=== PATIENT | male | born 1945 | race Caucasian/White ===

== ENCOUNTER 2021-09-21 00:10 | Day surgery (SDC) | payer OTHER, SELFPAY ==
[2021-08-12 12:05] VITALS: BMI 28.5
--- NOTE | 2021-09-10 13:11 | PC.NURSE ---
Verified new date and time of procedure with patient.
[2021-09-21 11:16] VITALS: BP 154/78; PULSE 76; RESP 18; TEMP 36.6; O2SAT 100
[2021-09-21] MEDS: LACTATED RINGERS 1,000 ML 150 ML IV CONT (11:24)
--- NOTE | 2021-09-21 12:06 | WPDANESEPPF ---
Anes - Initial Pre Proc Eval Procedure: Operation Date: 09/21/21 12:30 Proposed Procedures p Screening Colonoscopy - Garrick Tinoco MD Date/Time: 09/21/21 12:06 Surgeon: Garrick Tinoco MD Pre Op Diagnosis: hx of colon polyps Patient Data Age: 76 Gender: M Height: 1.83 m Weight: 93.8 kg Last Vital Signs Temp 36.6 C 09/21/21 11:16 Pulse 76 09/21/21 11:16 Resp 18 09/21/21 11:16 BP 154/78 H 09/21/21 11:16 Pulse Ox 100 09/21/21 11:16 Allergies Allergy/AdvReac Type Severity Reaction Status Date / Time No Known Allergies Allergy Verified 09/21/21 11:15 Home Medications Medication Instructions Recorded Confirmed Type levetiracetam 500 mg tablet See Rx Instructions .ROUTE 02/04/21 08/12/21 Rx .COMPLEX #180 tablet omeprazole 40 mg capsule,delayed See Rx Instructions .ROUTE 03/24/21 08/12/21 Rx release .COMPLEX #90 cap losartan 50 mg-hydrochlorothiazide 1 tablet PO DAILY #90 tablet 06/29/21 08/12/21 Rx 12.5 mg tablet diclofenac 75 mg-misoprostol 200 See Rx Instructions .ROUTE 06/30/21 08/12/21 Rx mcg tablet,immediate,delayed .COMPLEX #180 tablet release sertraline 50 mg tablet 50 mg PO DAILY #90 tablet 06/30/21 08/12/21 Rx Patient hx anesthesia problems: none Family hx anesthesia problems: none Results Review: All pre-operative results and documents have been reviewed as part of the pre-operative evaluation. [facility] Past Medical History Medical History (Updated 06/29/21 @ 13:27 by Jose Bowen MD) H/O tonic-clonic seizures Family History Family History Father Family history of cardiovascular disease, Onset Age: 70 Mother Carcinoma of colon, Onset Age: 56 Other Family history of malignant neoplasm Social History Social History Smoking status: Never smoker Alcohol intake: never Substance use: never Substance use type: does not use Living arrangements: with family Spiritual care concerns: No Anes - Eval Final PreProcedure Day of Procedure 09/21/21 12:06 Patient weight: overweight Heart: regular rate and rhythm Lungs: clear to auscultation Airway: Mallampati scale class II Neurological: alert and oriented Last oral intake: >/= 8 hours ASA classification: III Emergent: no Anesthetic plan: proceed Anesthesia type and monitoring: general GIVS and standard monitoring Results Review: All pre-operative results and documents have been reviewed as part of the pre-operative evaluation. Informed Consent: The patient's anesthetic plan and its attendant risks and benefits were discussed with the patient/family/POA. Questions were solicited and answers provided to the satisfaction of the patient/family/POA.
--- NOTE | 2021-09-21 12:19 | PM.HPGS ---
History of Present Illness History of Present Illness Consent: Risks, benefits, and alternatives have been discussed and questions answered. Patient agrees to proceed with procedure. Chief complaint: hx of colon polyps Narrative: Perico Winston Jr. is a 76 year old male here for screening colonoscopy, last one more than 10 years ago. Review of Systems Constitutional: Constitutional: Denies headache(s) and Denies weakness Eyes: Eyes: Denies blurry vision ENT: Reports Normal hearing present, Denies headache(s) and Denies neck pain Cardiovascular: Cardiovascular: Denies chest pain and Denies dyspnea Respiratory: Respiratory: Denies dyspnea Gastrointestinal: Gastrointestinal: Reports no additional gastrointestinal complaints Genitourinary: Genitourinary: Denies dysuria Musculoskeletal: Musculoskeletal: Denies neck pain Integumentary/Breasts: Skin/Breast: Denies dry skin Neurologic: Reports Normal hearing present, Denies headache(s) and Denies weakness Psychiatric: Psychiatric: Denies anxiety Endocrine: Endocrine: Denies change in body appearance Hematologic/Lymphatic: Hematologic/Lymphatic: Denies easy bleeding Allergic/Immunologic: Allergic/Immunologic: Denies urticaria PMFSH Past Medical History Medical History (Updated 06/29/21 @ 13:27 by Jose Bowen MD) H/O tonic-clonic seizures Family History Family History Father Family history of cardiovascular disease, Onset Age: 70 Mother Carcinoma of colon, Onset Age: 56 Other Family history of malignant neoplasm Social History Social History Smoking status: Never smoker Alcohol intake: never Substance use: never Substance use type: does not use Living arrangements: with family Spiritual care concerns: No Meds Home Medications and Allergies Home Medications Medication Instructions Recorded Confirmed Type levetiracetam 500 mg tablet See Rx Instructions .ROUTE 02/04/21 08/12/21 Rx .COMPLEX #180 tablet omeprazole 40 mg capsule,delayed See Rx Instructions .ROUTE 03/24/21 08/12/21 Rx release .COMPLEX #90 cap losartan 50 mg-hydrochlorothiazide 1 tablet PO DAILY #90 tablet 06/29/21 08/12/21 Rx 12.5 mg tablet diclofenac 75 mg-misoprostol 200 See Rx Instructions .ROUTE 06/30/21 08/12/21 Rx mcg tablet,immediate,delayed .COMPLEX #180 tablet release sertraline 50 mg tablet 50 mg PO DAILY #90 tablet 06/30/21 08/12/21 Rx Allergies Allergy/AdvReac Type Severity Reaction Status Date / Time No Known Allergies Allergy Verified 09/21/21 11:15 Vital Signs Vital Signs - 24 hr 09/21/21 11:16 Temperature 97.9 F Pulse Rate 76 Respiratory Rate 18 Blood Pressure 154/78 H Pulse Oximetry 100 Exam Const: General: comfortable and no acute distress HENMT: General nose exam: Normal nares present Eyes: General: appearance normal, both eyes and all related structures Neck: Neck: no JVD Resp: Auscultation: clear to auscultation bilaterally Cardio: Rate: regular rate Rhythm: regular rhythm GI: Inspection: non-distended GI Palp: Yes Soft to palpation Skin: General skin exam: normal color Neuro: General: gait normal Speech: normal speech Extrem: General: normal to inspection Psych: Mental Status: mental status grossly normal Assessment and Plan Assessment and plan (1) Colon cancer screening: Code(s): Z12.11 - Encounter for screening for malignant neoplasm of colon Status: Acute Assessment and Plan: colonoscopy
[2021-09-21 12:34] VITALS: BP 107/66; PULSE 61; RESP 18; O2SAT 99
[2021-09-21 12:44] VITALS: BP 107/71; PULSE 64; RESP 21; O2SAT 98
[2021-09-21 12:54] VITALS: BP 122/77; PULSE 59; RESP 14; O2SAT 100
== END 2021-09-21 13:06 | disposition home or self-care (01) ==
PROVIDERS: PCP Emergency Medicine; Visit Provider Internal Medicine Gastroenterology
PROC: 0DJD8ZZ Inspection of Lower Intestinal Tract, Via Natural or Artificial Opening Endoscopic (ICD-10-PCS; CPT 45378; principal; 2021-09-21 12:30)
DX: Z12.11 Encounter for screening for malignant neoplasm of colon (principal); D12.5 Benign neoplasm of sigmoid colon; K64.8 Other hemorrhoids; G40.89 Other seizures
CPT/HCPCS: 45385; 88305; J2704; J7120

== ENCOUNTER 2021-12-23 10:40 | Emergency (ER) | payer OTHER, SELFPAY ==
[2021-12-23 10:51] VITALS: BP 160/79; PULSE 64; RESP 18; TEMP 36.6; O2SAT 99
--- NOTE | 2021-12-23 11:03 | PC.NURSE ---
patient UTD on tetnus
--- NOTE | 2021-12-23 11:15 | PC.NURSE ---
patient states that incident occurred last night around 1999. active bleeding noted at this time. denies blood thinners.wound cleansed with NS and gauze for pressure
[2021-12-23] MEDS: LIDOCAINE HCL 1% LOCAL INJ 20 ML VIAL (12:15)
--- NOTE | 2021-12-23 12:17 | ED.WOUNDLAC ---
HPI - Wound/Laceration General Chief Complaint: Wound/Laceration Stated Complaint: left thumb lac Time Seen by Provider: 12/23/21 11:57 History of Present Illness HPI narrative: 76-year-old male presents to the emergency room for evaluation of laceration to his left thumb that occurred early this morning when he was attempting to open up a can. Patient states his tetanus is up-to-date Related Data Allergies Allergy/AdvReac Type Severity Reaction Status Date / Time No Known Allergies Allergy Verified 12/23/21 11:03 Review of Systems Review of Systems: CONSTITUTIONAL: Denies fever, chills, or sweats. EYES: Denies visual changes, redness, or discharge. ENT: Denies rhinorrhea, congestion, sore throat, or otalgia. CARDIOVASCULAR: Denies chest pain, palpitations, or edema. RESPIRATORY: Denies cough or dyspnea. GASTROINTESTINAL: Denies abdominal pain, nausea, vomiting, or diarrhea. GENITOURINARY: Denies dysuria or hematuria. SKIN: Laceration to left thumb MUSCULOSKELETAL: Denies back pain, joint pain, or myalgia. NEUROLOGIC: Denies headache, numbness, dizziness, or weakness. PSYCHIATRIC: Denies anxiety or depression. [facility] Past Medical History Medical History H/O tonic-clonic seizures Family History Family History Father Family history of cardiovascular disease, Onset Age: 70 Mother Carcinoma of colon, Onset Age: 56 Other Family history of malignant neoplasm Social History Social History Smoking status: Never smoker Alcohol intake: never Substance use: never Substance use type: does not use Spiritual care concerns: No Exam Narrative: GENERAL: Well-appearing, well-nourished, and in no acute distress. HEAD: Normocephalic, atraumatic. EYES: PERRLA and EOMI. CHEST: Clear to auscultation. No respiratory distress. No wheezes rales or rhonchi HEART: Regular rate and rhythm. No murmur heard. Normal peripheral pulses. ABDOMEN: Soft, nontender, nondistended, normal active bowel sounds. EXTREMITIES: Normal range of motion. No edema. SKIN: 5 cm linear laceration lateral surface of the left thumb. No joint laxity to the IP joint. Neurovascular is intact distally NEURO: No focal deficits. Alert and oriented x3. PSYCH: Normal mood and affect. Course Vital Signs Vital signs: Vital Signs Temperature 36.6 C 12/23/21 10:51 Pulse Rate 64 12/23/21 10:51 Respiratory Rate 18 12/23/21 10:51 Blood Pressure 160/79 H 12/23/21 10:51 Pulse Oximetry 99 12/23/21 10:51 Temperature 36.6 C 12/23/21 10:51 Pulse Rate 64 12/23/21 10:51 Respiratory Rate 18 12/23/21 10:51 Blood Pressure 160/79 H 12/23/21 10:51 Pulse Oximetry 99 12/23/21 10:51 Procedures Laceration Laceration 1: Date: 12/23/21 Time: 12:18 Site: other (left thumb) Side (If applicable): left Size (cm): 2.5 Description: linear Local Anesthetic: lidocaine 1% Amount of anesthesia used (mL): 3 Pre-repair: irrigated ====== Skin Level ====== Skin layer closed with: nylon Size (cm): 4-0 Number of sutures: 5 Technique: simple, interrupted ====== Subcutaneous Layer ====== ====== Muscle Layer ====== ====== Tendon Layer ====== Discharge Plan Discharge Clinical Impression: Laceration of left thumb Qualifiers: Encounter type: initial encounter Damage to nail status: without damage Foreign body presence: without foreign body Qualified Code(s): S61.012A - Laceration without foreign body of left thumb without damage to nail, initial encounter Patient Disposition: Home, Self-Care Condition: Stable Instructions: Antibiotic Form Prescriptions: New cephalexin 500 mg capsule 500 mg PO Q12H Qty: 14 RF: 0 No Action losartan-
--- NOTE | 2021-12-23 12:29 | PC.NURSE ---
bandaid placed over 5 sutures. thumb splint placed on left thumb and secured with coban
== END 2021-12-23 12:33 | disposition home or self-care (01) ==
PROVIDERS: Emergency Provider Nurse Practitioner Family; PCP Emergency Medicine
DX: S61.012A Laceration without foreign body of left thumb without damage to nail, initial encounter (principal); W26.8XXA Contact with other sharp object(s), not elsewhere classified, initial encounter
CPT/HCPCS: 12001; 99283

== ENCOUNTER 2022-09-07 09:38 | Outpatient (CLI) | payer OTHER, SELFPAY ==
--- NOTE | ~2022-09-07 | NM_ITS ---
EXAMINATION: NM bone scan whole body DATE: 09/07/2022 13:29 INDICATION: Malignant neoplasm of prostate. TECHNIQUE: 22.2 mCi Tc-99m HDP was administered intravenously. Delayed whole-body scintigrams were o btained. COMPARISON: CT chest, abdomen, and pelvis 01/27/2015 FINDINGS: There is joint-centered increased activity at the acromioclavicular joints, sternoclavicula r joints, elbows, hands, wrists, knees, and feet, likely osteoarthritis. There is focal increased act ivity in left eighth rib. IMPRESSION: 1. Focal increased activity in left eighth rib, most likely an age-indeterminate fracture. Metastatic disease cannot be excluded. Reviewed, dictated and finalized at location A. CAL ACCOUNTANT IMPRESSION: 1. Focal increased activity in left eighth rib, most likely an age-indeterminat e fracture. Metastatic disease cannot be excluded.
== END 2022-09-07 09:39 | disposition home or self-care (01) ==
PROVIDERS: PCP Emergency Medicine; Visit Provider Radiology Radiation Oncology
DX: C61 Malignant neoplasm of prostate (principal)
CPT/HCPCS: 78306; A9503

== ENCOUNTER 2023-05-28 18:47 | Emergency (ER) | payer OTHER, SELFPAY ==
--- NOTE | ~2023-05-28 | XR_ITS ---
EXAM: XR hand RT min 3V DATE: 05/28/2023 19:41 HISTORY: lateral redness/swelling, slammed in car door . COMPARISON: None available. FINDINGS: Decreased mineralization. No fracture or dislocation. No lytic or blastic lesion. Moderate degenerative changes. No erosion or periosteal change. Soft tissues within normal limits. IMPRESSION: No acute osseous finding in the right hand. Reviewed, dictated and finalized at location K.
[2023-05-28 19:00] VITALS: BP 102/56; PULSE 76; RESP 14; TEMP 36.7; O2SAT 98
--- NOTE | 2023-05-28 19:30 | ED.EXTPRO ---
HPI - Extremity Problem General Chief complaint: Extremity Problem,Nontraumatic Stated complaint: R HAND INFECTION S/P INJURY Time Seen by Provider: 05/28/23 19:17 History of Present Illness HPI Narrative: Patient is a 77-year-old male presenting with right hand redness. Patient states that he accidentally slammed his right hand in a door several days ago. States that he had some minor pain after that but then he noticed today that there is redness along the lateral aspect of his hand. States that he has some scabs on his hand from his goldendoodle. Denies significant pain. Denies fevers. Denies further complaints. Related Data Home Medications Medication Instructions Recorded Confirmed tamsulosin 0.4 mg capsule 0.4 mg PO DAILY 05/03/23 05/31/23 relugolix 120 mg tablet (Orgovyx) 120 mg PO 1700 06/01/23 06/01/23 Allergies Allergy/AdvReac Type Severity Reaction Status Date / Time No Known Allergies Allergy Verified 05/31/23 08:51 Review of Systems Review of Systems: All systems reviewed & are unremarkable except as noted in HPI and below PMFSH Past Medical History Medical History (Updated 06/01/23 @ 14:15 by Gurjit Kelsey APRN) CKD (chronic kidney disease), stage III Depression Gastroesophageal reflux disease without esophagitis HTN (hypertension) Mixed hyperlipidemia Prostate cancer Seizures Spondylosis without myelopathy or radiculopathy, cervical region Surgical History Surgical History (Updated 05/31/23 @ 17:52 by Parisa Weller APRN) History of prostate biopsy Family History Family History Father Family history of cardiovascular disease, Onset Age: 70 Mother Carcinoma of colon, Onset Age: 56 Other Family history of malignant neoplasm Social History Social History (Updated 05/31/23 @ 16:00 by Parisa Weller APRN) Social History: Currently lives at home with his . Surrogate decision maker: Lo Winston Full Code. Retired. Smoking status: Never smoker Alcohol intake: never Substance use: never Substance use type: does not use Lack of Transportation: No Lack of Food: Never True Current Housing: I Do Not Have Housing Concerned About Future Housing: No Difficulty Paying Gas/Electric Bills: No Difficulty Paying for Meds: No Currently Unemployed: No Education: Trade/Vocational Certificate Difficulty w/ Childcare or Family Care: No Living arrangements: with family Spiritual care concerns: No Exam Narrative: GENERAL: Well-appearing, well-nourished, and in no acute distress. HEAD: Normocephalic, atraumatic. EYES: PERRLA and EOMI. ENT: Grossly unremarkable NECK: Supple. CHEST: No respiratory distress. HEART: Regular rate and rhythm. Normal peripheral pulses. ABDOMEN: Nondistended EXTREMITIES: Right hand with multiple scabs that appear to be healing, there is a scab proximal to the fifth MCPJ with underlying erythema, warm to the touch, no spreading erythema, no obvious drainage, no swelling of the fingers, ROM intact, nontender SKIN: Warm, dry, no rash. NEURO: No focal deficits. Alert and oriented x3. PSYCH: Normal mood and affect. Course Vital Signs Vital signs: Vital Signs Temperature 98.0 F 05/28/23 19:00 Pulse Rate 76 05/28/23 19:00 Respiratory Rate 14 05/28/23 19:00 Blood Pressure 102/56 L 05/28/23 19:00 Pulse Oximetry 98 05/28/23 19:00 Oxygen Delivery Room Air 05/28/23 19:00 Temperature 98.0 F 05/28/23 19:00 Pulse Rate 76 05/28/23 19:00 Respiratory Rate 14 05/28/23 19:00 Blood Pressure 102/56 L 05/28/23 19:00 Pulse Oximetry 98 05/28/23 19:00 Oxygen Delivery Room Air 05/28/23 19:00 MDM - Extremity (Nontraumatic) MDM Narrative Medical decision making narrative: Patient is a 77-year-old male presenting with right hand redness and warmth. Vitals are stable. Exam remarkable
[2023-05-28] MEDS: AMOXICILLIN/CLAVULANATE K 875-125 MG TAB 1 TABLET PO (19:46)
== END 2023-05-28 20:58 | disposition home or self-care (01) ==
PROVIDERS: Emergency Provider Emergency Medicine; PCP Emergency Medicine
DX: L03.113 Cellulitis of right upper limb (principal)
CPT/HCPCS: 73130; 99283; A9270

== ENCOUNTER 2023-05-31 08:47 | Inpatient (IN) | payer OTHER, SELFPAY ==
[2023-05-31] VITALS (8 sets, daily range): BP systolic 127–152; BP diastolic 64–89; PULSE 76–96; RESP 16–18; TEMP 36.4–37.3; O2SAT 98–100; BMI 29.9
--- NOTE | 2023-05-31 10:03 | PC.NURSE ---
Pt presents with edema, ecchymosis to right 4th 7 5th knuckle extending to top of hand. States has been taking antibiotic & aaply warm compresses with no result of improvement.
--- NOTE | 2023-05-31 10:11 | ED.GENADULT ---
HPI - General Adult General Chief complaint: Extremity Problem,Nontraumatic <Kam Sinha PA-C - Last Filed: 05/31/23 14:57> Stated complaint: hand swelling <NATACHA Dickens Last Filed: 05/31/23 14:57> Time Seen by Provider: 05/31/23 09:06 <NATACHA Dickens Last Filed: 05/31/23 14:57> Source: patient <NATACHA Dickens Last Filed: 05/31/23 14:57> Mode of arrival: ambulatory <NATACHA Dickens Last Filed: 05/31/23 14:57> Limitations: no limitations <NATACHA Dickens Last Filed: 05/31/23 14:57> History of Present Illness HPI narrative: This is a 77-year-old male with PMH of diabetes who presents to the ED with chief complaint of right hand cellulitis that is worsened since last being seen 3 days ago. Patient reports he had an injury over 5 days ago in which she slammed his hand in the car door. Reports he was seen here after that and given Augmentin. Reports the redness, swelling significantly worsened last night and today. Denies fevers, chills, nausea, vomiting, streaking of the arms. <NATACHA Dickens Last Filed: 05/31/23 14:57> Related Data Home medications: Home Medications Medication Instructions Recorded Confirmed tamsulosin 0.4 mg capsule 0.4 mg PO DAILY 05/03/23 05/31/23 relugolix 120 mg tablet (Orgovyx) 120 mg PO 1700 06/01/23 06/01/23 <NATACHA Dickens Last Filed: 05/31/23 14:57> Allergies/adverse reactions: Allergies Allergy/AdvReac Type Severity Reaction Status Date / Time No Known Allergies Allergy Verified 06/09/23 09:47 <NATACHA Dickens Last Filed: 05/31/23 14:57> Review of Systems Review of Systems: All systems as dictated in HPI <NATACHA Dickens Last Filed: 05/31/23 14:57> [facility] Past Medical History Medical History: Medical History Abscess CKD (chronic kidney disease), stage III Depression Gastroesophageal reflux disease without esophagitis HTN (hypertension) Mixed hyperlipidemia Prostate cancer Seizures Spondylosis without myelopathy or radiculopathy, cervical region <Kam Sinha PA-C - Last Filed: 05/31/23 14:57> Surgical History Surgical History: Surgical History History of prostate biopsy <Kam Sinha PA-C - Last Filed: 05/31/23 14:57> Family History Family History: Family History Father Family history of cardiovascular disease, Onset Age: 70 Mother Carcinoma of colon, Onset Age: 56 Other Family history of malignant neoplasm <Kam Sinha PA-C - Last Filed: 05/31/23 14:57> Social History Social History: Social History (Updated 06/09/23 @ 10:06 by Tiki Bennett MA) Social History: Currently lives at home with his . Surrogate decision maker: Lo Winston Full Code. Retired. Smoking status: Never smoker Alcohol intake: never Substance use: never Substance use type: does not use Lack of Transportation: No Lack of Food: Never True Current Housing: I Have Housing Concerned About Future Housing: No Difficulty Paying Gas/Electric Bills: No Difficulty Paying for Meds: No Currently Unemployed: No Education: High School Diploma/GED Difficulty w/ Childcare or Family Care: No Living arrangements: with family Spiritual care concerns: No <Kam Sinha PA-C - Last Filed: 05/31/23 14:57> Exam Narrative: GENERAL: Well-appearing, well-nourished, and in no acute distress. HEAD: Normocephalic, atraumatic. EYES: PERRLA and EOMI. ENT: Nares clear, no rhinorrhea or epistaxis. Mucous membranes moist. Oropharynx without tonsillar hypertrophy exudate or other lesions. NECK: Supple. No adenopathy or masses. CHEST: No respiratory distress. Clear to auscultation. No wheezes rales or rhonchi
--- NOTE | 2023-05-31 10:16 | PC.NURSE ---
Blood specimens including blood cultures sent to lab
[2023-05-31 10:19] LABS: Basophils Percent Auto 0.3 % (0.2-1.2); Eosinophils Absolute Auto 0.1 K/mm3 (0-0.3); Eosinophils Percent Auto 1.6 % (0-4.4); Hematocrit 35.4 % (42.0-52.0); Hemoglobin 11.8 g/dL (14.0-18.0); Immature Granulocyte Absolute 0.02 K/mm3 (0.00-0.031); Immature Granulocyte Percent A 0.3 % (0-0.5); Lymphocytes Percent Auto 7.5 % (18.3-44.2); Mean Corpuscular HGB Conc 33.3 g/dl (32-36); Mean Corpuscular Hemoglobin 31.3 pg (26-34); Mean Corpuscular Volume 93.9 fl (80-100); Mean Platelet Volume 10.3 fl (7.4-10.4); Monocytes Absolute Auto 0.5 K/mm3 (0.1-0.6); Neutrophils Absolute Auto 5.6 K/mm3 (1.3-6.7); Neutrophils Percent Auto 83.3 % (45.5-73.1); Platelet Count Result 158 k/mm3 (150-375); Red Blood Count 3.77 M/mm3 (4.6-6.20); Red Cell Distribution Width 13.5 % (11.5-14.5); White Blood Count 6.7 K/mm3 (4.5-10.0)
[2023-05-31] MEDS: ceFAZolin 1 GM/NS 50 ML 1 GM/50 ML BAG IVPB ×2 (10:25→23:30)
[2023-05-31 10:28] LABS: Lactic Acid Reflex 1.1 mmol/L (0.7-2.0)
[2023-05-31 10:30] LABS: Alanine Aminotransferase 30 U/L (6-50); Albumin Level 4.4 g/dL (3.5-5.1); Alkaline Phosphatase 103 U/L (38-126); Anion Gap 12 mmol/L (8-16); Aspartate Amino Transferase 44 U/L (17-59); Bilirubin,Total 0.8 mg/dL (0.2-1.3); Blood Urea Nitrogen 25 mg/dL (9-20); CRP 4.3 mg/dL (<1.0); Calcium 9.4 mg/dL (8.4-10.2); Carbon Dioxide 23 mmol/L (22-30); Chloride 99 mmol/L (98-107); Estimated CRCL calculation 48 ml/min; Estimated Glomerular Filt Rate 54; Glucose 154 mg/dL (65-110); Potassium 4.7 mmol/L (3.4-5.0); Sodium 134 mmol/L (137-145)
--- NOTE | 2023-05-31 12:57 | ADMGEN ---
This patient, Perico Winston Jr., was admitted to [facility] Surg Room 331-01 at 1225. Patient/family oriented to hospital policies and general routines including ID bracelet, bed and alarms, visiting hours, pain management, procedures, bathroom and other care routines, personal items, smoking policy, room service/diet, and visiting hours. Information on how to activate the Rapid Response Team has been discussed. Patient/Family are encouraged to report perceived risks to care and to ask questions if they do not understand what they are told or what they should do.
[2023-05-31] MEDS: LOPERAMIDE HCL 2 MG CAPSULE 4 MG PO (14:12)
[2023-05-31] MEDS: SODIUM CHLORIDE 0.9% IV 1,000 ML 125 ML IV CONT ×2 (14:12→23:30)
--- NOTE | 2023-05-31 14:48 | PM.IMHP ---
H&P: HPI History of Present Illness Date/Time: 05/31/23 14:48 Chief Complaint: Hand Pain Narrative: 77-year-old male presents here with cellulitis to the right hand following trauma with past medical history of diabetes and seizures. Patient presents here with swelling, tenderness, and fluctuant area to the right medial hand midway between 5th finger and wrist. Patient sustained injury to his hand 5 days ago via slamming hand in the car door. He was seen on 05/28/2023 for this injury. Imaging was negative for fracture. He was discharged with Augmentin. Swelling and redness initially decreased after antibiotic was started, however area became increasingly swollen and erythematous yesterday. Presented back today for re-evaluation. Patient is unsure when last Tdap was administered. Review of Systems Review of Systems: He currently denies fever, chills, nausea, vomiting. Endorses intermittent diarrhea secondary to orgovyx use. All systems reviewed & are unremarkable except as noted in HPI and below PMFSH Past Medical History Medical History (Updated 05/31/23 @ 17:51 by Parisa Weller APRN) CKD (chronic kidney disease), stage III Depression Gastroesophageal reflux disease without esophagitis HTN (hypertension) Mixed hyperlipidemia Prostate cancer Seizures Spondylosis without myelopathy or radiculopathy, cervical region Surgical History Surgical History (Updated 05/31/23 @ 17:52 by Parisa Weller APRN) History of prostate biopsy Family History Family History Father Family history of cardiovascular disease, Onset Age: 70 Mother Carcinoma of colon, Onset Age: 56 Other Family history of malignant neoplasm Social History Social History (Updated 05/31/23 @ 16:00 by Parisa Weller APRN) Social History: Currently lives at home with his . Surrogate decision maker: Lo Winston Full Code. Retired. Smoking status: Never smoker Alcohol intake: never Substance use: never Substance use type: does not use Lack of Transportation: No Lack of Food: Never True Current Housing: I Do Not Have Housing Concerned About Future Housing: No Difficulty Paying Gas/Electric Bills: No Difficulty Paying for Meds: No Currently Unemployed: No Education: Trade/Vocational Certificate Difficulty w/ Childcare or Family Care: No Living arrangements: with family Spiritual care concerns: No Meds Home Medications and Allergies Home Medications Medication Instructions Recorded Confirmed Type diclofenac sodium 75 mg See Rx Instructions .Route 06/14/22 05/31/23 Rx tablet,delayed release .COMPLEX #180 tabs omeprazole 40 mg capsule,delayed See Rx Instructions .Route 08/18/22 05/31/23 Rx release .COMPLEX #90 caps levetiracetam 500 mg tablet See Rx Instructions .Route 02/17/23 05/31/23 Rx .COMPLEX #180 tabs losartan 50 mg-hydrochlorothiazide See Rx Instructions .Route 04/11/23 05/31/23 Rx 12.5 mg tablet .COMPLEX #90 tabs misoprostol 200 mcg tablet See Rx Instructions .Route 04/11/23 05/31/23 Rx .COMPLEX #180 tabs tamsulosin 0.4 mg capsule 0.4 mg PO DAILY 05/03/23 05/31/23 History sertraline 50 mg tablet See Rx Instructions .Route 05/11/23 05/31/23 Rx .COMPLEX #90 tabs amoxicillin 875 mg-potassium 1 tablet PO Q12H #20 tabs 05/28/23 05/31/23 Rx clavulanate 125 mg tablet Allergies Allergy/AdvReac Type Severity Reaction Status Date / Time No Known Allergies Allergy Verified 05/31/23 08:51 Vital Signs Vital Signs - 24 hr 05/31/23 08:49 05/31/23 10:01 05/31/23 10:31 Temperature 98.1 F 97.6 F Pulse Rate 95 88 86 Respiratory Rate 16 18 18 Blood Pressure 152/84 H 131/89 127/70 Pulse Oximetry 100 99 100 Oxygen Delivery Room Air 05/31/23 11:01 05/31/23 12:17 05/31/23 12:54 Temperature 98.0 F 98.6 F Pulse Rate 88 84 83 Respiratory Rate 18 18 1
[2023-05-31] MEDS: VANCOMYCIN 1,250 MG/NS 250 ML 1,250 MG/250 ML BAG 166.67 MG IVPB ×2 (17:42→17:43)
[2023-05-31] MEDS: levETIRAcetam 500 MG TABLET PO (20:19)
[2023-05-31] MEDS: MORPHINE SULFATE (*CRX) 2 MG/ML INJ IV PUSH (20:20)
[2023-05-31 20:54] LABS: Glucose Point of Care 97 mg/dl (65-105)
[2023-05-31] MEDS: TETANUS,DIPHTHERIA,AC PERTUSSIS ADULT (0.5 ML) BOOSTRIX IM (23:30)
[2023-06-01] MEDS: SODIUM CHLORIDE 0.9% IV 1,000 ML 125 ML IV CONT (05:35)
[2023-06-01] MEDS: ceFAZolin 1 GM/NS 50 ML 1 GM/50 ML BAG IVPB ×3 (05:38→20:10)
[2023-06-01] MEDS: MORPHINE SULFATE (*CRX) 2 MG/ML INJ IV PUSH ×2 (05:41→12:39)
[2023-06-01 06:00] VITALS: BP 156/73; PULSE 62; RESP 18; TEMP 37.2; O2SAT 98
[2023-06-01 06:54] LABS: Hematocrit 29.2 % (42.0-52.0); Hemoglobin 9.6 g/dL (14.0-18.0); Mean Corpuscular HGB Conc 32.9 g/dl (32-36); Mean Corpuscular Hemoglobin 31.2 pg (26-34); Mean Corpuscular Volume 94.8 fl (80-100); Red Blood Count 3.08 M/mm3 (4.6-6.20); White Blood Count 4.3 K/mm3 (4.5-10.0)
[2023-06-01 06:55] LABS: Basophils Percent Auto 0.5 % (0.2-1.2); Eosinophils Absolute Auto 0.1 K/mm3 (0-0.3); Eosinophils Percent Auto 1.9 % (0-4.4); Immature Granulocyte Absolute 0.01 K/mm3 (0.00-0.031); Immature Granulocyte Percent A 0.2 % (0-0.5); Lymphocytes Absolute Auto 0.47 K/mm3 (0.9-3.2); Lymphocytes Percent Auto 11.1 % (18.3-44.2); Mean Platelet Volume 9.8 fl (7.4-10.4); Monocytes Absolute Auto 0.4 K/mm3 (0.1-0.6); Monocytes Percent Auto 9.6 % (2.6-8.5); Neutrophils Absolute Auto 3.3 K/mm3 (1.3-6.7); Neutrophils Percent Auto 76.7 % (45.5-73.1); Platelet Count Result 117 k/mm3 (150-375); Red Cell Distribution Width 13.5 % (11.5-14.5)
[2023-06-01 07:14] LABS: Alanine Aminotransferase 26 U/L (6-50); Albumin Level 3.7 g/dL (3.5-5.1); Alkaline Phosphatase 86 U/L (38-126); Anion Gap 6 mmol/L (8-16); Aspartate Amino Transferase 38 U/L (17-59); Bilirubin,Total 0.6 mg/dL (0.2-1.3); Blood Urea Nitrogen 17 mg/dL (9-20); Calcium 8.8 mg/dL (8.4-10.2); Carbon Dioxide 24 mmol/L (22-30); Chloride 105 mmol/L (98-107); Estimated CRCL calculation 56 ml/min; Estimated Glomerular Filt Rate > 60; Glucose 103 mg/dL (65-110); Sodium 135 mmol/L (137-145)
[2023-06-01 07:35] LABS: Hemoglobin A1C 5.1 % (<5.7)
[2023-06-01] MEDS: HYDROcodone/acetaminophen (*CRX) 5-325 MG TABLET 1 TAB PO ×3 (08:28→19:15)
[2023-06-01] MEDS: levETIRAcetam 500 MG TABLET PO ×2 (08:28→20:09)
[2023-06-01] MEDS: TAMSULOSIN HCL 0.4 MG CAPSULE PO (08:29)
[2023-06-01] MEDS: miSOPROStol 200 MCG TABLET PO ×2 (08:29→20:10)
--- NOTE | 2023-06-01 09:56 | PM.IMPN ---
Progress Note: A&P Assessment and Plan (1) Cellulitis of hand, right: Code(s): L03.113 - Cellulitis of right upper limb Status: Acute (2) Abscess: Code(s): L02.91 - Cutaneous abscess, unspecified Status: Acute Assessment and Plan: Right hand overlying 4th and 5th metacarpals (3) H/O tonic-clonic seizures: Code(s): Z86.69 - Personal history of other diseases of the nervous system and sense organs Status: Acute (4) Hyperglycemia: Code(s): R73.9 - Hyperglycemia, unspecified Status: Acute (5) HTN (hypertension): Code(s): I10 - Essential (primary) hypertension Status: Acute (6) Depression: Code(s): F32.A - Depression, unspecified Status: Acute (7) CKD (chronic kidney disease), stage III: Code(s): N18.30 - Chronic kidney disease, stage 3 unspecified Status: Acute (8) Gastroesophageal reflux disease without esophagitis: Code(s): K21.9 - Gastro-esophageal reflux disease without esophagitis Status: Acute (9) Prostate cancer: Code(s): C61 - Malignant neoplasm of prostate Status: Acute Plan Problem List 1. Cellulitis and abscess of hand, right x-ray hand: No acute osseous findings CRP elevated, white count within normal limits plastics consulted for I&D lido topical ordered in the event procedure is indicated. wound culture cefazolin x1 given in ED - continue with Vancomycin w/troughs and ancef q8H. tyl, tyl/hydrocodone, morphine PRN for pain zofran PRN for nausea docusate PRN for constipation update TDAP - unknown when last received swelling/erythema marked at 2100 on 05/31/23, increased swelling since initial eval. no active drainage. 06/01: Dr. Miller to complete incision and drainage at bedside today. Chronic Conditions - seizures: Continue Keppra - HTN: Continue losartan, hydrochlorothiazide. Monitor blood pressure. - depression: Continue sertraline - prostate cancer: continue Tamsulosin. continue home orgovyx (NF) once daily. intermittent diarrhea from Orgovyx, Imodium PRN. - discontinue home Diclofenac, patient unclear why he is currently on this medication. Hx of CKD. - not currently on DM medications, previously managed with diet. will update A1C. Diet: Diabetic diet GI Prophylaxis: Continue home medication, misoprostol and substitute pantoprazole for omeprazole-Hx GERD DVT Prophylaxis: SCDs and Lovenox 40 Lines: pIV Code Status: Full code Time Spent With Patient Time with patient: 25 - 35 minutes Subjective Date/time seen: 06/01/23 09:56 Interval history: Patient denies any fever chills. Patient has no complaints. His right hand is bruised with an apparent abscess on the dorsal surface overlying the 4th and 5th metacarpal no further spread beyond the borders outlying yesterday. IV antibiotics in process. Review of Systems Review of Systems: All systems reviewed & are unremarkable except as noted in HPI and below Exam Narrative: GENERAL: Generally well appearing, alert and oriented, in no apparent distress. He is pleasant and conversant in full sentences. HEENT: Pupils are equally round and briskly reactive to light. Extraocular muscles are intact. Oral mucous membranes are moist without lesions. NECK: The patient has no noted JVD. No adenopathy is appreciated. CHEST/LUNGS: Lungs are clear bilaterally without rhonchi, rales, or wheezes. HEART: The patient has a regular rate and rhythm. No murmurs, rubs, or gallops are appreciated. Distal pulses are 2+. ABDOMEN: The patient?s abdomen is soft, nontender, and nondistended. Bowel sounds are positive. EXTREMITIES: Right hand swollen with apparent abscess and significant bruising to the dorsal medial aspect overlying the 4th 5th metacarpals. The patient has no other peripheral edema. There is no focal long bone tenderness or deformity. SKIN: The patient?s skin is warm and dry, without rashes or lesions. PSYCH
[2023-06-01] MEDS: SERTRALINE HCL 50 MG TABLET PO (12:13)
[2023-06-01] MEDS: hydroCHLOROthiazide 12.5 MG CAPSULE PO (12:13)
[2023-06-01] MEDS: LOSARTAN POTASSIUM 50 MG TABLET PO (12:13)
[2023-06-01] MEDS: LIDOCAINE HCL 1% LOCAL INJ 10 ML VIAL INFILTRATE (12:35)
[2023-06-01] MEDS: HYDROGEN PEROXIDE 3% SOLN(*SP) 473 ML BOTTLE 200 ML IRRIGATION (12:35)
--- NOTE | 2023-06-01 12:41 | WPDCN ---
Assessment and Plan Assessment and plan (1) Cellulitis of hand, right: Code(s): L03.113 - Cellulitis of right upper limb Status: Acute Assessment and Plan: 77yo male with right dorsal hand abscess and cellulitis admitted as inpatient reviwed xray images and agree with report discussed impression and Dx and rec for I&D discussed procedure, expectaitons and risks. pt stated understanding and wished to proceed Plan: 1) right dorsal hand abscess I&D'd 2) bid warm saline and betadine soaks 3) elevation 4) abx per primary 5) will follow while inpatient 6) self ROM (2) Abscess: Code(s): L02.91 - Cutaneous abscess, unspecified Status: Acute HPI Data of Consult Date/Time: 06/01/23 12:41 Requesting Physician: Tirso Wiggins MD Primary Care Provider: Jose Bowen MD Consult Narrative Narrative: Perico Winston Jr. is a 77 year old RHD male who hit his hand on car door ~6 days aago and developed erythema and tenderness over right 5th MC who is admitted for IV abx and cellulitis. plastics consulted for eval and mgmt PMFSH Past Medical History Medical History (Updated 06/01/23 @ 12:44 by Andrew Lagos MD) CKD (chronic kidney disease), stage III Depression Gastroesophageal reflux disease without esophagitis HTN (hypertension) Mixed hyperlipidemia Prostate cancer Seizures Spondylosis without myelopathy or radiculopathy, cervical region Surgical History Surgical History (Updated 05/31/23 @ 17:52 by Parisa Weller APRN) History of prostate biopsy Family History Family History Father Family history of cardiovascular disease, Onset Age: 70 Mother Carcinoma of colon, Onset Age: 56 Other Family history of malignant neoplasm Social History Social History (Updated 05/31/23 @ 16:00 by Parisa Weller APRN) Social History: Currently lives at home with his . Surrogate decision maker: Lo Catrachito Full Code. Retired. Smoking status: Never smoker Alcohol intake: never Substance use: never Substance use type: does not use Lack of Transportation: No Lack of Food: Never True Current Housing: I Do Not Have Housing Concerned About Future Housing: No Difficulty Paying Gas/Electric Bills: No Difficulty Paying for Meds: No Currently Unemployed: No Education: Trade/Vocational Certificate Difficulty w/ Childcare or Family Care: No Living arrangements: with family Spiritual care concerns: No Meds Home Medications and Allergies Home Medications Medication Instructions Recorded Confirmed Type diclofenac sodium 75 mg See Rx Instructions .Route 06/14/22 05/31/23 Rx tablet,delayed release .COMPLEX #180 tabs omeprazole 40 mg capsule,delayed See Rx Instructions .Route 08/18/22 05/31/23 Rx release .COMPLEX #90 caps levetiracetam 500 mg tablet See Rx Instructions .Route 02/17/23 05/31/23 Rx .COMPLEX #180 tabs losartan 50 mg-hydrochlorothiazide See Rx Instructions .Route 04/11/23 05/31/23 Rx 12.5 mg tablet .COMPLEX #90 tabs misoprostol 200 mcg tablet See Rx Instructions .Route 04/11/23 05/31/23 Rx .COMPLEX #180 tabs tamsulosin 0.4 mg capsule 0.4 mg PO DAILY 05/03/23 05/31/23 History sertraline 50 mg tablet See Rx Instructions .Route 05/11/23 05/31/23 Rx .COMPLEX #90 tabs amoxicillin 875 mg-potassium 1 tablet PO Q12H #20 tabs 05/28/23 05/31/23 Rx clavulanate 125 mg tablet relugolix 120 mg tablet (Orgovyx) 120 mg PO 1700 06/01/23 06/01/23 History Allergies Allergy/AdvReac Type Severity Reaction Status Date / Time No Known Allergies Allergy Verified 05/31/23 08:51 Vital Signs Vital Signs - 24 hr 05/31/23 12:54 05/31/23 14:00 05/31/23 14:28 Temperature 37.0 C 36.9 C Pulse Rate 83 96 Respiratory Rate 18 18 Blood Pressure 127/87 140/69 Pulse Oximetry 100 100 Oxygen Delivery Room Air
[2023-06-01 14:00] VITALS: BP 141/80; PULSE 66; RESP 18; TEMP 36.4; O2SAT 99
[2023-06-01] MEDS: PANTOPRAZOLE 40 MG TABLET PO (16:56)
[2023-06-01 21:08] VITALS: BP 144/81; PULSE 63; RESP 16; TEMP 36.3; O2SAT 99
[2023-06-02 05:05] VITALS: BP 145/76; PULSE 59; RESP 16; TEMP 36.3; O2SAT 95
[2023-06-02] MEDS: ceFAZolin 1 GM/NS 50 ML 1 GM/50 ML BAG IVPB (05:50)
[2023-06-02] MEDS: HYDROcodone/acetaminophen (*CRX) 5-325 MG TABLET 1 TAB PO ×2 (05:54→12:06)
[2023-06-02 07:05] LABS: Basophils Percent Auto 0.5 % (0.2-1.2); Eosinophils Absolute Auto 0.1 K/mm3 (0-0.3); Eosinophils Percent Auto 3.5 % (0-4.4); Hemoglobin 10.6 g/dL (14.0-18.0); Immature Granulocyte Absolute 0.02 K/mm3 (0.00-0.031); Immature Granulocyte Percent A 0.5 % (0-0.5); Lymphocytes Absolute Auto 0.52 K/mm3 (0.9-3.2); Lymphocytes Percent Auto 13.2 % (18.3-44.2); Mean Corpuscular HGB Conc 33.1 g/dl (32-36); Mean Corpuscular Hemoglobin 31.2 pg (26-34); Mean Corpuscular Volume 94.1 fl (80-100); Mean Platelet Volume 9.1 fl (7.4-10.4); Monocytes Absolute Auto 0.4 K/mm3 (0.1-0.6); Monocytes Percent Auto 9.1 % (2.6-8.5); Neutrophils Absolute Auto 2.9 K/mm3 (1.3-6.7); Neutrophils Percent Auto 73.2 % (45.5-73.1); Platelet Count Result 122 k/mm3 (150-375); Red Cell Distribution Width 13.1 % (11.5-14.5)
[2023-06-02 07:26] LABS: Alanine Aminotransferase 25 U/L (6-50); Alkaline Phosphatase 94 U/L (38-126); Anion Gap 7 mmol/L (8-16); Aspartate Amino Transferase 47 U/L (17-59); Bilirubin,Total 0.7 mg/dL (0.2-1.3); Blood Urea Nitrogen 17 mg/dL (9-20); Calcium 9.4 mg/dL (8.4-10.2); Carbon Dioxide 25 mmol/L (22-30); Chloride 102 mmol/L (98-107); Estimated CRCL calculation 51 ml/min; Estimated Glomerular Filt Rate 59; Glucose 101 mg/dL (65-110); Potassium 4.3 mmol/L (3.4-5.0); Sodium 134 mmol/L (137-145)
[2023-06-02] MEDS: miSOPROStol 200 MCG TABLET PO (08:48)
[2023-06-02] MEDS: TAMSULOSIN HCL 0.4 MG CAPSULE PO (08:48)
[2023-06-02] MEDS: levETIRAcetam 500 MG TABLET PO (08:48)
[2023-06-02] MEDS: hydroCHLOROthiazide 12.5 MG CAPSULE PO (11:56)
--- NOTE | 2023-06-02 11:56 | PM.DS ---
DS: Admitting Diagnosis Discharge Date 06/02/2023 Admitting Diagnosis cellulitis right hand DS: Discharge Diagnosis Discharge Diagnosis (1) Cellulitis of hand, right: Code(s): L03.113 - Cellulitis of right upper limb Status: Acute (2) Abscess: Code(s): L02.91 - Cutaneous abscess, unspecified Status: Acute (3) H/O tonic-clonic seizures: Code(s): Z86.69 - Personal history of other diseases of the nervous system and sense organs Status: Acute (4) Hyperglycemia: Code(s): R73.9 - Hyperglycemia, unspecified Status: Acute (5) HTN (hypertension): Code(s): I10 - Essential (primary) hypertension Status: Acute (6) Depression: Code(s): F32.A - Depression, unspecified Status: Acute (7) CKD (chronic kidney disease), stage III: Code(s): N18.30 - Chronic kidney disease, stage 3 unspecified Status: Acute (8) Gastroesophageal reflux disease without esophagitis: Code(s): K21.9 - Gastro-esophageal reflux disease without esophagitis Status: Acute (9) Prostate cancer: Code(s): C61 - Malignant neoplasm of prostate Status: Acute DS: Summary Hospital Course Reason for hospitalization: patient was admitted for worsening right hand cellulitis with abscess formation for IV antibiotics and plastic surgery consult. Hospital Course: This is a 77-year-old male patient who was admitted to the hospital after his right hand was closed in a door for car and he subsequently developed what was initially to be bruising of the hand but turned out to be infectious. The erythema and swelling continued despite starting oral antibiotics. Patient came back and was admitted to the hospital for IV antibiotics and plastic surgery evaluation. Yesterday patient underwent bedside incision and drainage with large amount of brown purulence drainage expressed by Dr. Lagos. Given the development of purulence, highly suspect staph infection. Wound culture is in process. Preliminary results show white blood cells and Gram-positive cocci in clusters. Patient reports that he is miserable sitting in the hospital bed and it is very timber sprinkler his room and his daily medication for prostate cancer causes him to have hot flashes. patient desperately wanting to be discharged and to be called with wound culture results if antibiotics need to be changed. Patient placed on high-dose Bactrim DS 2 tabs twice daily for 10 days. Patient has not had any fevers and his white blood cell count has remained stable. Patient has been instructed on soaking and bandaging his hand. Prior to discharge nursing staff will instruct patient's daughter on the same process. Status at Discharge Cognitive/behavioral status at discharge: Awake alert oriented and pleasant Functional status at discharge: independent ambulation Overall status at discharge: patient is progressing back to baseline Time Spent with Patient Time attestation: Total time spent providing and/or coordinating discharge services: 40 minutes Time spent: Greater than 30 minutes Exam Narrative: GENERAL: Generally well appearing, alert and oriented, in no apparent distress. He is pleasant and conversant in full sentences. HEENT: Pupils are equally round and briskly reactive to light. Extraocular muscles are intact. Oral mucous membranes are moist without lesions. NECK: The patient has no noted JVD. No adenopathy is appreciated. CHEST/LUNGS: Lungs are clear bilaterally without rhonchi, rales, or wheezes. HEART: The patient has a regular rate and rhythm. No murmurs, rubs, or gallops are appreciated. Distal pulses are 2+. ABDOMEN: The patient?s abdomen is soft, nontender, and nondistended. Bowel sounds are positive. EXTREMITIES: Incision and drainage currently wrapped with Xeroform and gauze, minimal amount blood present on the bandaging. The patient has no other peripheral edema. There is no focal long bone tenderness or d
--- NOTE | 2023-06-02 11:56 | WPDPN ---
Progress Note: A&P Assessment and Plan (1) Abscess: Code(s): L02.91 - Cutaneous abscess, unspecified Status: Acute Assessment and Plan: 77 y/o right hand dominant male h/o CKD, HTN, prostate cancer, with right hand cellulitus POD#1 s/p right hand abscess incision and drainage with improving edema and pain, on abx per medicine, cultures pending. Recommend continued wound soaks and dressing changes BID, RUE elevation, abx per medicine, follow cultures. Plastics remains available for consult. (2) Cellulitis of hand, right: Code(s): L03.113 - Cellulitis of right upper limb Status: Acute Subjective Date/time seen: 06/02/23 11:56 Interval history: pt seen at bedside. no concerns overnight. denies pain at rest, fever/chills, decreased sensation/ROM. Tenderness improving. Compliant with wound care, soaks, and limb elevation. Exam Narrative: RIGHT HAND: Gen: kerlix and xeroform dressing c/d/i. dorsal 4th and 5th MC erythema, ulnar dorsal hand incision without drainage, no fluctuance, minimal edema. ROM: Full AROM Vascular: Warm and well perfused Sensation: Intact to light touch Const: General: comfortable and no acute distress Eyes: Other: sclera anicteric Resp: Effort & Inspection: normal respiratory effort Cardio: Rate: regular rate Rhythm: regular rhythm Objective Data Vital Signs Vital Signs: Vital Signs - 24 hr 06/01/23 14:00 06/01/23 21:08 06/02/23 05:05 Temperature 36.4 C 36.3 C L 36.3 C L Pulse Rate 66 63 59 L Respiratory Rate 18 16 16 Blood Pressure 141/80 H 144/81 H 145/76 H Pulse Oximetry 99 99 95 Oxygen Delivery 06/02/23 08:45 Temperature Pulse Rate Respiratory Rate Blood Pressure Pulse Oximetry Oxygen Delivery Room Air Intake/Output Intake/Output: Intake & Output 05/30/23 05/31/23 06/01/23 06/02/23 23:59 23:59 23:59 23:59 Intake Total 2790 4322 290 Balance 2790 4322 290 Meds/Results Medications: Active Medications Generic Name Dose Route Start Last Admin Trade Name Freq PRN Reason Stop Dose Admin Acetaminophen 650 mg 05/31/23 11:21 Acetaminophen 325 Mg Tablet PO Q4H PRN Mild Pain (1-3) or Fever Hydrocodone Bitart/Acetaminophen 1 tab 05/31/23 18:29 06/02/23 05:54 Hydrocodone/Acetaminophen (*Crx) 5-325 Mg Tablet PO 1 tab Q4H PRN Administration Moderate Pain (4-6) Docusate Sodium 100 mg 05/31/23 18:29 Docusate Sodium 100 Mg Capsule PO BID PRN Constipation Enoxaparin Sodium 40 mg 06/01/23 09:00 06/02/23 09:00 Enoxaparin 40 Mg/0.4 Ml Syringe SUB-Q Not Given DAILY [facility] Home Med 1 each 06/01/23 17:00 06/01/23 16:56 *Home Med* Relugolix [Orgovyx] 120 Mg Tablet) PO 07/01/23 16:59 1 each DAILY@1700 NAZIA Administration Hydrochlorothiazide 12.5 mg 06/01/23 12:00 06/01/23 12:13 Hydrochlorothiazide 12.5 Mg Capsule PO 12.5 mg 1200 NAZIA Administration Vancomycin HCl 1,500 mg in 500 mls @ 250 mls/hr 06/01/23 18:00 06/01/23 19:10 Vancomycin 1,500 Mg/D5w 500 Ml IVPB Infused Q24H NAZIA Infusion Cefazolin Sodium 1 gm in 50 mls @ 100 mls/hr 05/31/23 22:50 06/02/23 06:20 Ancef 1 Gm/Ns 50 Ml IVPB Infused Q8HR NAZIA Infusion Levetiracetam 500 mg 05/31/23 20:00 06/02/23 08:48 Levetiracetam 500 Mg Tablet PO 500 mg 0800,1999 NAZIA Administration Loperamide HCl 4 mg 05/31/23 13:16 05/31/23 14:12 Loperamide Hcl 2 Mg Capsule PO 4 mg BID PRN Administration Diarrhea Losartan Potassium 50 mg 06/01/23 12:00 06/01/23 12:13 Losartan Potassium 50 Mg Tablet PO 50 mg 1200 NAZIA Administration Misoprostol 200 mcg 06/01/23 21:00 06/02/23 08:48 Misoprostol 200 Mcg Tablet PO 200 mcg Q12H NAZIA Administration Morphine Sulfate 2 mg 05/31/23 18:29 06/01/23 12:39 Morphine Sulfate (*Crx) 2 Mg/Ml Inj IV PUSH 2 mg Q4H PRN Administration Pain Rated 7-10 Naloxone HCl 0.1 mg 05/31/23 18:29 Naloxone Hcl
[2023-06-02] MEDS: LOSARTAN POTASSIUM 50 MG TABLET PO (11:57)
[2023-06-02] MEDS: SERTRALINE HCL 50 MG TABLET PO (11:57)
[2023-06-02 14:00] VITALS: BP 143/82; PULSE 67; RESP 16; TEMP 36.8; O2SAT 98
[2023-06-02] MEDS: SULFAMETHOXAZOLE/TRIMETHOPRIM 800/160 MG DS TABLET 2 TAB PO (14:24)
== END 2023-06-02 16:35 | disposition home or self-care (01) | DRG 603 ==
LOC: ANHED 11:25 → ANH3MEDSUR 16:22
PROVIDERS: Nurse Practitioner; Student in an Organized Health Care Education/Training Program; Admitting Provider Internal Medicine; Emergency Provider Physician Assistant; PCP Emergency Medicine; Visit Provider Internal Medicine
DX: L03.113 Cellulitis of right upper limb (principal); L02.511 Cutaneous abscess of right hand; Z16.29 Resistance to other single specified antibiotic; B95.62 Methicillin resistant Staphylococcus aureus infection as the cause of diseases classified elsewhere; I12.9 Hypertensive chronic kidney disease with stage 1 through stage 4 chronic kidney disease, or unspecified chronic kidney disease; N18.30 Chronic kidney disease, stage 3 unspecified; R73.9 Hyperglycemia, unspecified; E78.2 Mixed hyperlipidemia; R56.9 Unspecified convulsions; F32.A Depression, unspecified; K21.9 Gastro-esophageal reflux disease without esophagitis; Z86.69 Personal history of other diseases of the nervous system and sense organs; Z85.46 Personal history of malignant neoplasm of prostate
CPT/HCPCS: 36415; 73130; 80053; 82948; 83036; 83605; 85025; 86140; 87040; 87070; 87147; 87186; 87205; 90715; 96365; 99024; 99283; 99285; A9270; J0690; J2270; J3370; J7030

== ENCOUNTER 2024-03-11 17:01 | Inpatient (IN) | payer OTHER, SELFPAY ==
--- NOTE | ~2024-03-11 | XR_ITS ---
EXAMINATION: XR chest 2V DATE: 03/11/2024 17:59 INDICATION: Shortness of breath TECHNIQUE: frontal and lateral views of the chest were obtained. COMPARISON: Chest radiograph dated 10/24/2015 FINDINGS: Tiny bilateral pleural effusions. Posterior sulci. No other airspace opacities, pulmonary edema or pn eumothorax. The cardiomediastinal silhouette is normal. Mild to moderate thoracic spondylosis with mi ld anterior wedging of a few mid thoracic vertebral bodies. IMPRESSION: 1. Tiny bilateral pleural effusions. Reviewed, dictated and finalized at location A.
[2024-03-11 17:05] VITALS: BP 115/69; PULSE 92; RESP 16; TEMP 36.4; O2SAT 100
--- NOTE | 2024-03-11 17:10 | ECG_ITS ---
Test Date: 2024-03-11 17:09:39 Measurements Intervals [place] Rate: 85 P: 64 MN: 168 QRS: -39 QRSD: 101 T: -7 QT: 378 QTc: 452 Interpretive Statements SINUS RHYTHM LEFT AXIS DEVIATION LEFT VENTRICULAR HYPERTROPHY AND ST-T CHANGE BORDERLINE ST-T WAVE ABNORMALITY- DIFFUSE LEADS BORDERLINE ECG No previous ECG available for comparison Electronically Signed On 03-11-2024 20:22:27 CDT by Teddy Ma D.O.
--- NOTE | 2024-03-11 17:22 | ED.GIBLEED ---
HPI - GI Bleed General Chief complaint: GI Bleed <NATACHA Granger Last Filed: 03/11/24 18:54> Stated complaint: GI bleed, SOB <NATACHA Granger Last Filed: 03/11/24 18:54> Time Seen by Provider: 03/11/24 17:04 <NATACHA Granger Last Filed: 03/11/24 18:54> Source: patient and family <NATACHA Granger Last Filed: 03/11/24 18:54> Mode of arrival: wheelchair <NATACHA Granger Last Filed: 03/11/24 18:54> Limitations: other (poor historian) <NATACHA Granger Last Filed: 03/11/24 18:54> History of Present Illness HPI Narrative: Patient presents to the emergency department for bright red blood per rectum. Reports this has been ongoing for several months. Sometimes there is dark blood. Reports some diarrhea. Endorses intermittent shortness of breath and fatigue. He was seen by his PCP and started on Anusol suppositories for internal hemorrhoids. He has continued to have bleeding. Denies fevers, chest pain, abdominal pain, vomiting. <NATACHA Granger Last Filed: 03/11/24 18:54> Related Data Home medications: Home Medications Medication Instructions Recorded Confirmed tamsulosin 0.4 mg capsule 0.4 mg PO DAILY 05/03/23 02/22/24 relugolix 120 mg tablet (Orgovyx) 120 mg PO 1700 06/01/23 02/22/24 <NATACHA Granger Last Filed: 03/11/24 18:54> Allergies/Adverse reactions: Allergies Allergy/AdvReac Type Severity Reaction Status Date / Time No Known Allergies Allergy Verified 03/11/24 17:01 <NATACHA Granger Last Filed: 03/11/24 18:54> Review of Systems Review of Systems: CONSTITUTIONAL: Denies fever CARDIOVASCULAR: Denies chest pain, or edema. RESPIRATORY: Reports dyspnea. GASTROINTESTINAL: Reports diarrhea. Denies abdominal pain, nausea, vomiting <Sonia Nicolas PA-C - Last Filed: 03/11/24 18:54> All systems reviewed & are unremarkable except as noted in HPI and below <Sonia Nicolas PA-C - Last Filed: 03/11/24 18:54> [facility] Past Medical History Medical History: Medical History Abscess Cellulitis of hand, right Cervical spondylosis CKD (chronic kidney disease) stage 2, GFR 60-89 ml/min CKD (chronic kidney disease), stage III Cutaneous abscess of unspecified hand Depression Elevated blood pressure reading Gastroesophageal reflux disease without esophagitis H/O tonic-clonic seizures HTN (hypertension) Hyperglycemia Mixed hyperlipidemia Moderate episode of recurrent major depressive disorder Neck pain Pain in left shoulder Patient had no falls in past year Primary osteoarthritis of both shoulders Prostate cancer Seizure disorder Seizures Snoring Spondylosis without myelopathy or radiculopathy, cervical region Viral syndrome Visit for suture removal <Sonia Nicolas PA-C - Last Filed: 03/11/24 18:54> Surgical History Surgical History: Surgical History History of prostate biopsy <Sonia Nicolas PA-C - Last Filed: 03/11/24 18:54> Family History Family History: Family History Father Family history of cardiovascular disease, Onset Age: 70 Mother Carcinoma of colon, Onset Age: 56 Other Family history of malignant neoplasm <Sonia Nicolas PA-C - Last Filed: 03/11/24 18:54> Social History Social History: Social History Social History: Currently lives at home with his . Surrogate decision maker: Lo Winston Full Code. Retired. Smoking status: Never smoker Alcohol intake: never Substance use: never Substance use type: does not use Current Housing: Decline to Answer Concerned About Future Housing: Decline to Answer Difficulty Paying Gas/Electric Bills: Decline to Answer Di
[2024-03-11 17:32] LABS: Basophils Percent Auto 0.3 % (0.2-1.2); Eosinophils Absolute Auto 0.2 K/mm3 (0-0.3); Eosinophils Percent Auto 4.5 % (0-4.4); Hematocrit 26.3 % (42.0-52.0); Hemoglobin 8.1 g/dL (14.0-18.0); Immature Granulocyte Absolute 0.01 K/mm3 (0.00-0.031); Immature Granulocyte Percent A 0.3 % (0-0.5); Lymphocytes Absolute Auto 0.74 K/mm3 (0.9-3.2); Lymphocytes Percent Auto 20.6 % (18.3-44.2); Mean Corpuscular HGB Conc 30.8 g/dl (32-36); Mean Corpuscular Hemoglobin 27.6 pg (26-34); Mean Corpuscular Volume 89.5 fl (80-100); Mean Platelet Volume 11.3 fl (7.4-10.4); Monocytes Absolute Auto 0.3 K/mm3 (0.1-0.6); Monocytes Percent Auto 7.2 % (2.6-8.5); Neutrophils Absolute Auto 2.4 K/mm3 (1.3-6.7); Neutrophils Percent Auto 67.1 % (45.5-73.1); Platelet Count Result 190 k/mm3 (150-375); Red Blood Count 2.94 M/mm3 (4.6-6.20); Red Cell Distribution Width 13.7 % (11.5-14.5); White Blood Count 3.6 K/mm3 (4.5-10.0)
[2024-03-11 17:44] VITALS: BP 105/66; PULSE 79; RESP 12; O2SAT 100
[2024-03-11 17:46] LABS: Alanine Aminotransferase 18 U/L (6-50); Albumin Level 4.4 g/dL (3.5-5.1); Alkaline Phosphatase 98 U/L (38-126); Anion Gap 17 mmol/L (4-12); Aspartate Amino Transferase 44 U/L (17-59); Bilirubin,Total 0.7 mg/dL (0.2-1.3); Blood Urea Nitrogen 22 mg/dL (9-20); Calcium 9.4 mg/dL (8.4-10.2); Carbon Dioxide 18 mmol/L (22-30); Chloride 97 mmol/L (98-107); Estimated CRCL calculation 47 ml/min; Estimated Glomerular Filt Rate 54; Glucose 117 mg/dL (65-110); Potassium 3.9 mmol/L (3.4-5.0); Sodium 132 mmol/L (137-145)
[2024-03-11] MEDS: SODIUM CHLORIDE 0.9% IV 1,000 ML 999 ML IV CONT (18:01)
[2024-03-11 18:29] VITALS: BP 111/62; PULSE 78; RESP 13; O2SAT 100
[2024-03-11 18:46] LABS: NT Pro B Type Natriuretic Pept 862 pg/mL (19.9-100)
[2024-03-11 18:48] VITALS: BP 116/64; PULSE 80; RESP 22; O2SAT 100
[2024-03-11 19:16] LABS: INR 1.1; Prothrombin Time 15.2 Seconds (11.1-14.7)
[2024-03-11 19:17] LABS: Partial Thromboplastin Time 27.1 Seconds (22.3-36.8)
[2024-03-11 19:42] VITALS: BP 120/70; PULSE 76; RESP 15; O2SAT 100
[2024-03-11 20:00] VITALS: BP 124/61; PULSE 81; RESP 17; TEMP 36.4; O2SAT 100
[2024-03-11 20:06] VITALS: BMI 23.9
--- NOTE | 2024-03-11 20:11 | ADMGEN ---
This patient, Perico Winston Jr., was admitted to Medical Room 257-01. Patient/family oriented to hospital policies and general routines including ID bracelet, bed and alarms, visiting hours, pain management, procedures, bathroom and other care routines, personal items, smoking policy, room service/diet, and visiting hours. Information on how to activate the Rapid Response Team has been discussed. Patient/Family are encouraged to report perceived risks to care and to ask questions if they do not understand what they are told or what they should do.
[2024-03-11 21:47] LABS: Hematocrit 22.9 % (42.0-52.0)
[2024-03-11 22:00] LABS: Lactic Acid Reflex 1.5 mmol/L (0.7-2.0)
[2024-03-11] MEDS: SODIUM CHLORIDE 0.9% IV 1,000 ML 100 ML IV CONT (22:07)
[2024-03-11] MEDS: ACETAMINOPHEN 325 MG TABLET 650 MG PO (22:07)
--- NOTE | 2024-03-11 22:11 | PM.IMHP ---
H&P: HPI History of Present Illness Date/Time: 03/11/24 22:11 Chief Complaint: Bloody stools Narrative: 78-year-old male with a past medical history of prostate cancer, GERD, essential hypertension, seizure disorder, colon polyps and internal hemorrhoids with last screening colonoscopy August 2021 who presented to the ER with bright red blood per rectum. The patient states that he has been having intermittent bright red blood per rectum on and off for a couple of months but it is been more persistent for the last 2 weeks. He went to his primary care provider and was given hydrocortisone suppositories which have not helped with the symptoms. He denies any diarrhea, constipation, mucousy stools, travel, ill contacts, nausea or vomiting. He denies any dysphagia. He has noticed occasional lightheadedness with standing that is become more persistent over the last couple of days. And over the last week he has developed shortness of breath with exertion. He has had markedly decrease in appetite has only eaten popcorn over the last 4 days. On review of patient's documented weight from outpatient visits to today the patient's weight has went from around 100 kg May 2023 down to 80 kg today. He weighed 85 kg on February 21. He does have a history of prostate cancer and is on a GnRH analog. He reports that since he started that medication last month he has had improvement in his urinary stream a. He still has occasional weak urinary stream but denies any sensation of incomplete bladder emptying, dysuria or hematuria. He denies he any history of easy bruising, bleeding or petechiae. He does take diclofenac at home due to chronic back pain. He has not taken any ibuprofen or Aleve. He is not on blood thinners. Review outpatient labs that demonstrated patient having leukopenia since last May. He does have baseline anemia with hemoglobin ranging between 9.6 and 11.8. He does have a history of chronic kidney disease but his creatinine is currently at his baseline. Review of Systems Review of Systems: 12 systems were reviewed with pertinent positives and negatives per HPI. Except as documented in the HPI, all other systems were reviewed and are negative. 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 He smoked briefly when he was a young man. He drinks alcohol on occasion but only in moderation. He used to drink a little bit heavier than he does now but he was still drink an alcoholic beverage about once a month. He denies any illicit substance history. Code status: Full code Surrogate decision maker: Lo Winston () Smoking status: Never smoker Alcohol intake: never Substance use: never Substance use type: does not use Do You Feel Safe in your
[2024-03-12] VITALS (15 sets, daily range): BP systolic 116–141; BP diastolic 59–71; PULSE 68–88; RESP 8–18; TEMP 36.5–36.7; O2SAT 98–100; BMI 23.9
[2024-03-12 00:08] LABS: Immature Reticulocyte Fraction 24.8 % (3.0-15.9); Reticulocyte Hemoglobin Conten 20.7 pg (28.2-36.6); Reticulocyte Percent 2.45 % (0.7-4.3); Reticulocytes Absolute 0.06 10^6/uL (0.02-0.10)
[2024-03-12] MEDS: SODIUM CHLORIDE 0.9% IV 250 ML 30 ML IV CONT (00:20)
--- NOTE | 2024-03-12 01:02 | ECG_ITS ---
Test Date: 2024-03-12 00:01:02 Measurements Intervals [place] Rate: 85 P: 30 OR: 189 QRS: -25 QRSD: 102 T: 25 QT: 368 QTc: 439 Interpretive Statements SINUS RHYTHM LEFT VENTRICULAR HYPERTROPHY WITH ST-T CHANGE NONSPECIFIC ST & T-WAVE ABNORMALITY- ANTEROLAT/INF LEADS BORDERLINE ECG Compared to ECG 03/11/2024 17:09:39 NO SIGNIFICANT CHANGE Electronically Signed On 03-12-2024 06:40:17 CDT by Teddy Ma D.O.
[2024-03-12 02:42] LABS: Iron 27 ug/dL (49-181)
[2024-03-12 03:00] LABS: Percent Iron Saturation 7 % (20-50)
[2024-03-12 03:28] LABS: Ferritin 9.87 ng/mL (11.1-264)
[2024-03-12 04:02] LABS: Folic Acid > 20.0 ng/mL (2.76->20)
[2024-03-12 06:18] LABS: Hematocrit 28.8 % (42.0-52.0); Hemoglobin 9.2 g/dL (14.0-18.0); Mean Corpuscular HGB Conc 31.9 g/dl (32-36); Mean Corpuscular Hemoglobin 28.8 pg (26-34); Mean Corpuscular Volume 90.3 fl (80-100); Mean Platelet Volume 10.6 fl (7.4-10.4); Platelet Count Result 123 k/mm3 (150-375); Red Blood Count 3.19 M/mm3 (4.6-6.20); Red Cell Distribution Width 13.8 % (11.5-14.5); White Blood Count 3.5 K/mm3 (4.5-10.0)
[2024-03-12 06:52] LABS: Anion Gap 8 mmol/L (4-12); Blood Urea Nitrogen 20 mg/dL (9-20); Calcium 9.2 mg/dL (8.4-10.2); Carbon Dioxide 23 mmol/L (22-30); Chloride 105 mmol/L (98-107); Estimated CRCL calculation 50 ml/min; Estimated Glomerular Filt Rate 59; Glucose 66 mg/dL (65-110); Potassium 5.1 mmol/L (3.4-5.0); Sodium 136 mmol/L (137-145)
--- NOTE | 2024-03-12 07:22 | PM.IMPN ---
Progress Note: A&P Assessment and Plan (1) Symptomatic anemia: Code(s): D64.9 - Anemia, unspecified Status: Acute Assessment and Plan: 03/12/24: Acute blood loss anemia due to GI bleeding Patient was given 2 units packed red blood cells Trend labs GI consulted Plan for colonoscopy tomorrow Bowel prep NPO after mid Patient has history of internal hemorrhoids. (2) Bright red blood per rectum: Code(s): K62.5 - Hemorrhage of anus and rectum Status: Acute Assessment and Plan: see above (3) Internal hemorrhoids: Code(s): K64.8 - Other hemorrhoids Status: Acute Assessment and Plan: see above (4) Pancytopenia: Code(s): D61.818 - Other pancytopenia Status: Acute Assessment and Plan: 03/12/24: White blood cell count 3.5, RBC 3.19, hemoglobin 9.2, platelet count 123 Likely secondary acute blood loss anemia from GI bleeding Continue to trend Consider Hematology consult if no improvement (5) Severe protein-calorie malnutrition: Code(s): E43 - Unspecified severe protein-calorie malnutrition Status: Acute Assessment and Plan: 03/12/24: BMI 23.9, 80 kg Subjective Date/time seen: 03/12/24 07:22 Interval history: Interval history: This is a 78-year-old male who presented to the hospital on 03/11/2024 with bloody stools. Workup in the hospital included a chest x-ray which showed tiny bilateral pleural effusions. Initial labs showed a white blood cell count of 3.6, hemoglobin 8.1, INR 1.1, sodium 132, chloride 97, bicarb 18, BUN 22, EGFR 54, lactate was 1.5, iron 27, ferritin 9.87, proBNP 862. Patient received 1 L normal saline and GI was consulted. Patient received 2 units PRBC and started on Protonix. 03/12/24: Patient denies any fever, chills, nausea, vomiting, diarrhea, abdominal pain, chest pain, or shortness of breath. Patient endorses blood in stool. He states he was prescribed in the past suppositories for internal hemorrhoids but ran out of the prescription. He also has history of prostate cancer s/p radiation. Review of Systems Review of Systems: All systems reviewed & are unremarkable except as noted in HPI and below Constitutional: Constitutional: Reports as per HPI and Reports no additional constitutional complaints Eyes: Eyes: Reports as per HPI and Reports no additional eye complaints ENT: Reports system reviewed and no additional complaints, except as documented and Reports as per HPI Cardiovascular: Cardiovascular: Reports as per HPI and Reports no additional cardiovascular complaints Respiratory: Respiratory: Reports as per HPI and Reports no additional respiratory complaints Gastrointestinal: Gastrointestinal: Reports as per HPI and Reports no additional gastrointestinal complaints Genitourinary: Genitourinary: Reports no additional male genitourinary complaints and Reports as per HPI Musculoskeletal: Musculoskeletal: Reports no additional musculoskeletal complaints and Reports as per HPI Integumentary/Breasts: Skin/Breast: Reports system reviewed and no additional complaints, except as docu and Reports as per HPI Neurologic: Reports system reviewed and no additional complaints, except as documented and Reports as per HPI Psychiatric: Psychiatric: Reports no additional psychiatric complaints and Reports as per HPI Exam Narrative: General: In no acute distress, well nourished Head: atraumatic, no encephalopathy Eyes: EOMI, PERRLA, sclera clear ENT: moist mucous membranes, nasal passages clear Neck: supple, no JVD, no adenopathy, trachea midline Cardiac: Normal S1 and S2. RRR, No murmur, gallops or friction rubs, peripheral pulses intact. Respiratory: Lungs clear to auscultation, no adventitious lung sounds, currently on room air Gastrointestinal: soft, non-distended, non-tender, normoactive bowel sounds. : voiding without difficulty. Extremities: moves all extremities well, no edema, good ROM
[2024-03-12] MEDS: SERTRALINE HCL 50 MG TABLET PO (08:28)
[2024-03-12] MEDS: TAMSULOSIN HCL 0.4 MG CAPSULE PO (08:28)
[2024-03-12] MEDS: levETIRAcetam 500 MG TABLET PO ×2 (08:28→20:14)
[2024-03-12] MEDS: LOSARTAN POTASSIUM 50 MG TABLET PO (08:29)
[2024-03-12] MEDS: PANTOPRAZOLE 40 MG TABLET PO ×2 (08:29→20:14)
--- NOTE | 2024-03-12 08:32 | WPDGICN ---
Assessment and Plan Assessment and plan (1) Bright red blood per rectum: Code(s): K62.5 - Hemorrhage of anus and rectum Status: Acute (2) Family history of colon cancer: Code(s): Z80.0 - Family history of malignant neoplasm of digestive organs Status: Acute (3) Hemorrhoids: Qualifiers: Hemorrhoid type: first degree Qualified Code(s): K64.0 - First degree hemorrhoids Code(s): K64.9 - Unspecified hemorrhoids Status: Acute (4) LEDY (iron deficiency anemia): Qualifiers: Iron deficiency anemia type: unspecified iron deficiency Qualified Code(s): D50.9 - Iron deficiency anemia, unspecified Code(s): D50.9 - Iron deficiency anemia, unspecified Status: Acute Plan 1. Rectal bleeding/diarrhea /Family history of colon cancer: Last colonoscopy 09/21/2021 with tubular adenomatous polyp removed and a few small internal hemorrhoids were seen but not actively bleeding. Patient reports painless bright red blood per rectum, small to moderate amount, occurring intermittently with bowel movements for the past 2-3 months. He completed 45 treatments of radiation for prostate cancer in September 2022. Patient was given suppositories by his PCP which he did for 12 days with only minimal improvement of bleeding.The patient was on diclofenac 75 mg b.i.d. prior to admission but denies any other NSAID, aspirin, or anticoagulant use. INR 1.1. Maternal grandmother, grandfather and mother all had history of colon cancer. DDX: Hemorrhoids VS Radiation proctitis VS polyp VS AVM VS neoplasm. Prep for colonoscopy today and perform colonoscopy tomorrow to evaluate source of bleeding clear liquid diet today NPO after midnight further recommendations to follow endoscopy 2. Anemia: Likely multifactorial etiology. Labs show Hgb 8 on admission, improved to 9 after 2 units pRBCs. Iron studies consistent with iron deficiency anemia showing total iron 27, TIBC 374, iron saturation 7%, and ferritin 9.87. no current signs of active GI bleeding. Primary care team to supplement iron continue to monitor H&H and transfuse as needed to keep Hgb >7 Colonoscopy tomorrow Thank you very much for allowing me to share in the care of this very nice patient. This report may have been done utilizing a voice recognition system. Attempts have been made to correct errors. However, there may be uncorrected grammatical, spelling, and recognition errors present. GI Consult Note Consult date/time: 03/12/24 08:32 Reason for consult: GI bleed HPI: This is a pleasant 78 year old male with a past medical surgical history of CKD stage 3, depression, HTN, GERD, HLD, prostate cancer, personal history of colon polyps, hemorrhoids, seizure disorder, and cleft lip and palate repair he presented to the ER room 03/11/2024 with complaints of rectal bleeding. GI consulted for GI bleed. Patient recently completed 45 treatments of radiation for prostate cancer in September 2022. He takes Abiraterone but no oral chemotherapy. He reports decreased appetite for the past few weeks and has only eaten popcorn for the past 3 days. He gets full quickly when eating. He has bowel movements every 2-3 days which is normal for him. He occasionally has to strain but typically his stools are soft, formed, and non urgent. Patient noted to have internal hemorrhoids on last colonoscopy in 2021 but he denies that they have ever been problematic or symptomatic. He denies any rectal pain. Denies constipation, diarrhea, or melena. He takes diclofenac daily for back pain from tailbone all the way up to my hairline . Patient admits to painless rectal bleeding. Bleeding is bright red blood, small to moderate amount, and occurs intermittently with bowel movements for the past 2-3 months ( it might happen today. It might not happen for 3 or 4 days or a week ). He thought maybe the bleeding Was from his prostate radiation treatment but it jus
[2024-03-12 08:43] LABS: Hematocrit 29.3 % (42.0-52.0); Hemoglobin 9.3 g/dL (14.0-18.0)
--- NOTE | 2024-03-12 11:46 | PC.NURSE ---
Addendum entered by Sneha Painter RN 03/12/24 17:26: UPDATE: 1700 Gatorade arrived. No Miralax from pharmacy yet. Decided to check secondary pyxis and it was loaded with 3 bottles of Miralax. Bowel prep started at 1715 after extensive education and addressing questions and concerns from patient and family. Addendum entered by Sneha Painter RN 03/12/24 16:29: UPDATE: 1555 still no Gatorade or Miralax. Dietary called again. Pharmacy called as well as Miralax could not be located. Original Note: Patient resting in bed. He is very knowledgeable about his medications and care. He was able to ambulate to the restroom without difficulty. Patient does not care for his clear liquid diet. GI consult today. No complaints of pain or SOB at this time. 1145 called dietary for bowel prep Gatorade.
[2024-03-12] MEDS: SODIUM CHLORIDE 0.9% IV 1,000 ML 100 ML IV CONT (13:53)
[2024-03-12] MEDS: BISACODYL 5 MG TABLET EC 20 MG PO (13:53)
--- NOTE | 2024-03-12 14:34 | PM.DS ---
DS: Summary Hospital Course Hospital Course: This is a 78-year-old male who presented to the hospital on 03/11/2024 with bloody stools. Workup in the hospital included a chest x-ray which showed tiny bilateral pleural effusions. Initial labs showed a white blood cell count of 3.6, hemoglobin 8.1, INR 1.1, sodium 132, chloride 97, bicarb 18, BUN 22, EGFR 54, lactate was 1.5, iron 27, ferritin 9.87, proBNP 862. Patient received 1 L normal saline and GI was consulted. Patient received 2 units PRBC and started on Protonix. 03/12/24: Patient denies any fever, chills, nausea, vomiting, diarrhea, abdominal pain, chest pain, or shortness of breath. Patient endorses blood in stool. He states he was prescribed in the past suppositories for internal hemorrhoids but ran out of the prescription. He also has history of prostate cancer s/p radiation. Time Spent with Patient Time attestation: Total time spent providing and/or coordinating discharge services: DS: Data Data Completed and Pending Labs on day of discharge: Labs from last 24 hours 03/12/24 03/12/24 03/11/24 08:13 05:54 21:28 WBC 3.5 L RBC 3.19 L Hgb 9.3 L 9.2 L 7.0 L Hct 29.3 L 28.8 L 22.9 L MCV 90.3 MCH 28.8 MCHC 31.9 L RDW 13.8 Plt Count 123 L MPV 10.6 H Immature Gran % (Auto) Neut % (Auto) Lymph % (Auto) [place] % (Auto) Eos % (Auto) Baso % (Auto) Lymph # (Auto) [place] # (Auto) Eos # (Auto) Baso # (Auto) Abs Immat Gran (auto) Absolute Neuts (auto) Absolute Nucleated RBC Nucleated RBC % Absolute Retic 0.06 Percent Retic 2.45 Immature Retic Fraction 24.8 H Retic Hgb Content 20.7 L PT INR APTT Sodium 136 L Potassium 5.1 H Chloride 105 Carbon Dioxide 23 Anion Gap 8 BUN 20 Creatinine 1.20 Estim Creat Clear Calc 50 Estimated GFR 59 Glucose 66 Lactic Acid 1.5 Calcium 9.2 Iron 27 L TIBC 374 % Saturation 7 L Ferritin 9.87 L Total Bilirubin AST ALT Alkaline Phosphatase NT-Pro-B Natriuret Pep Total Protein Albumin Vitamin B12 662.0 Folate > 20.0 H TSH (Reflex) 1.820 Blood Type Antibody Screen Crossmatch 03/11/24 03/11/24 03/11/24 18:46 17:20 17:19 WBC 3.6 L RBC 2.94 L Hgb 8.1 L Hct 26.3 L MCV 89.5 MCH 27.6 MCHC 30.8 L RDW 13.7 Plt Count 190 D MPV 11.3 H Immature Gran % (Auto) 0.3 Neut % (Auto) 67.1 Lymph % (Auto) 20.6 [place] % (Auto) 7.2 Eos % (Auto) 4.5 H Baso % (Auto) 0.3 Lymph # (Auto) 0.74 L [place] # (Auto) 0.3 Eos # (Auto) 0.2 Baso # (Auto) 0.0 Abs Immat Gran (auto) 0.01 Absolute Neuts (auto) 2.4 Absolute Nucleated RBC 0.000 Nucleated RBC % 0.0 Absolute Retic Percent Retic Immature Retic Fraction Retic Hgb Content PT 15.2 H INR 1.1 APTT 27.1 Sodium 132 L Potassium 3.9 Chloride 97 L Carbon Dioxide 18 L Anion Gap 17 H BUN 22 H Creatinine 1.30 Estim Creat Clear Calc 47 Estimated GFR 54 L Glucose 117 H Lactic Acid Calcium 9.4 Iron TIBC % Saturation Ferritin Total Bilirubin 0.7 AST 44 ALT 18 Alkaline Phosphatase 98 NT-Pro-B Natriuret Pep 862 H Total Protein 8.0 Albumin 4.4 Vitamin B12 Folate TSH (Reflex) Blood Type A Positive Antibody Screen Negative Crossmatch See Detail Discharge Plan Discharge Attending physician on discharge: Norma Villa Consulting providers: Garrick Tinoco Discharging Clinician: Doris Lopez Anticipated Discharge Date/Time: 03/12/24 13:32 Patient Disposition: Home, Self-Care Activity: as tolerated Diet: as tolerated Patient Instructions: Antibiotic Form Patient Language: Bol[place]ian Stand Alone Forms: General Discharge Information Follow-up/Referrals: Jose Bowen MD [Primary Care Provider
--- NOTE | 2024-03-12 15:30 | PHAR ---
RX [id number] TC SCRIPT IDENTIFIED TO CONTAIN: DRUG NAME: ORGOVYX INGREDIENTS: RELUGOLIX -- 120 MG COLOR: LIGHT RED SHAPE: OVAL IMPRINT: R ; 120 FORM: ORAL TABLET ONCE DAILY AT SAME TIME EACH DAY
--- NOTE | 2024-03-12 15:43 | PC.NURSE ---
1330 home medication brought in, pharmacy called, medication sent to pharmacy for verification.
[2024-03-12] MEDS: polyethylene glycoL 3350 238 GM BOTTLE PO (17:08)
[2024-03-13] VITALS (7 sets, daily range): BP systolic 95–143; BP diastolic 51–90; PULSE 73–85; RESP 12–24; TEMP 35.7–36.8; O2SAT 92–100
[2024-03-13] MEDS: SODIUM CHLORIDE 0.9% IV 1,000 ML 100 ML IV CONT (00:13)
[2024-03-13] MEDS: MAGNESIUM CITRATE 300 ML BTL PO (02:07)
[2024-03-13 07:53] LABS: Basophils Percent Auto 0.5 % (0.2-1.2); Eosinophils Absolute Auto 0.2 K/mm3 (0-0.3); Eosinophils Percent Auto 4.3 % (0-4.4); Hematocrit 29.5 % (42.0-52.0); Hemoglobin 9.3 g/dL (14.0-18.0); Immature Granulocyte Absolute 0.01 K/mm3 (0.00-0.031); Immature Granulocyte Percent A 0.2 % (0-0.5); Lymphocytes Percent Auto 14.4 % (18.3-44.2); Mean Corpuscular HGB Conc 31.5 g/dl (32-36); Mean Corpuscular Hemoglobin 28.6 pg (26-34); Mean Corpuscular Volume 90.8 fl (80-100); Mean Platelet Volume 10.3 fl (7.4-10.4); Monocytes Absolute Auto 0.3 K/mm3 (0.1-0.6); Monocytes Percent Auto 6.7 % (2.6-8.5); Neutrophils Absolute Auto 3.1 K/mm3 (1.3-6.7); Neutrophils Percent Auto 73.9 % (45.5-73.1); Platelet Count Result 132 k/mm3 (150-375); Red Blood Count 3.25 M/mm3 (4.6-6.20); Red Cell Distribution Width 14.2 % (11.5-14.5); White Blood Count 4.2 K/mm3 (4.5-10.0)
[2024-03-13 08:06] LABS: Alanine Aminotransferase 14 U/L (6-50); Albumin Level 3.8 g/dL (3.5-5.1); Alkaline Phosphatase 86 U/L (38-126); Anion Gap 9 mmol/L (4-12); Aspartate Amino Transferase 27 U/L (17-59); Bilirubin,Total 0.5 mg/dL (0.2-1.3); Blood Urea Nitrogen 12 mg/dL (9-20); Calcium 9.3 mg/dL (8.4-10.2); Carbon Dioxide 23 mmol/L (22-30); Chloride 107 mmol/L (98-107); Estimated CRCL calculation 55 ml/min; Estimated Glomerular Filt Rate > 60; Glucose 89 mg/dL (65-110); Potassium 3.8 mmol/L (3.4-5.0); Sodium 139 mmol/L (137-145)
[2024-03-13] MEDS: LOSARTAN POTASSIUM 50 MG TABLET PO (08:46)
[2024-03-13] MEDS: levETIRAcetam 500 MG TABLET PO (08:46)
[2024-03-13] MEDS: PANTOPRAZOLE 40 MG TABLET PO (08:46)
[2024-03-13] MEDS: SERTRALINE HCL 50 MG TABLET PO (08:46)
[2024-03-13] MEDS: TAMSULOSIN HCL 0.4 MG CAPSULE PO (08:46)
--- NOTE | 2024-03-13 10:00 | PC.NURSE ---
To GI Lab per [ ], IV [ ]. Report given to [ ].
--- NOTE | 2024-03-13 10:00 | PC.NURSE ---
To GI Lab by wheelchair, IV in Right forearm. Report given to Siri.
--- NOTE | 2024-03-13 10:00 | PC.NURSE ---
To GI Lab per [ ], IV [ ]. Report given to [ ].
[2024-03-13] MEDS: LACTATED RINGERS 1,000 ML 150 ML IV CONT (10:47)
[2024-03-13 11:11] LABS: Glucose Point of Care 86 mg/dl (65-105)
--- NOTE | 2024-03-13 11:19 | WPDANESEPPF ---
Anes - Initial Pre Proc Eval Procedure: Operation Date: 03/13/24 16:30 Proposed Procedures p Colonoscopy - Garrick Tinoco MD Date/Time: 03/13/24 11:19 Surgeon: Doris Lopez APRN Pre Op Diagnosis: GI bleed, Anemia Patient Data Age: 78 Gender: M Height: 1.83 m Weight: 80 kg Last Vital Signs Temp 35.7 C L 03/13/24 10:30 Pulse 75 03/13/24 10:30 Resp 16 03/13/24 10:30 BP 139/71 03/13/24 10:30 Pulse Ox 98 03/13/24 10:30 O2 Del Method Room Air 03/13/24 10:30 FiO2 21 03/12/24 08:59 Allergies Allergy/AdvReac Type Severity Reaction Status Date / Time No Known Allergies Allergy Verified 03/13/24 10:41 Home Medications Medication Instructions Recorded Confirmed Type tamsulosin 0.4 mg capsule 0.4 mg PO DAILY 05/03/23 03/11/24 History relugolix 120 mg tablet (Orgovyx) 120 mg PO 1600 06/01/23 03/11/24 History hydrocortisone acetate 25 mg 25 mg RECTAL DAILY #12 ea 02/22/24 03/11/24 Rx rectal suppository (Anusol-HC) diclofenac sodium 75 mg 75 mg PO BID 03/11/24 03/11/24 History tablet,delayed release levetiracetam 500 mg tablet 500 mg PO BID 03/11/24 03/11/24 History losartan 50 mg-hydrochlorothiazide 1 tablet PO DAILY 03/11/24 03/11/24 History 12.5 mg tablet misoprostol 200 mcg tablet 200 mcg PO BID 03/11/24 03/11/24 History omeprazole 40 mg capsule,delayed 40 mg PO QAM 03/11/24 03/11/24 History release sertraline 50 mg tablet 50 mg PO DAILY 03/11/24 03/11/24 History Laboratory Tests 03/13/24 03/13/24 07:35 11:09 WBC 4.2 L K/mm3 (4.5-10.0) RBC 3.25 L M/mm3 (4.6-6.20) Hgb 9.3 L g/dL (14.0-18.0) Hct 29.5 L % (42.0-52.0) MCV 90.8 fl (80-100) MCH 28.6 pg (26-34) MCHC 31.5 L g/dl (32-36) RDW 14.2 % (11.5-14.5) Plt Count 132 L k/mm3 (150-375) MPV 10.3 fl (7.4-10.4) Immature Gran % (Auto) 0.2 % (0-0.5) Neut % (Auto) 73.9 H % (45.5-73.1) Lymph % (Auto) 14.4 L % (18.3-44.2) [place] % (Auto) 6.7 % (2.6-8.5) Eos % (Auto) 4.3 % (0-4.4) Baso % (Auto) 0.5 % (0.2-1.2) Lymph # (Auto) 0.60 L K/mm3 (0.9-3.2) [place] # (Auto) 0.3 K/mm3 (0.1-0.6) Eos # (Auto) 0.2 K/mm3 (0-0.3) Baso # (Auto) 0.0 K/mm3 (0.0-0.1) Abs Immat Gran (auto) 0.01 K/mm3 (0.00-0.031) Absolute Neuts (auto) 3.1 K/mm3 (1.3-6.7) Absolute Nucleated RBC 0.000 K/mm3 (0.0-0.012) Nucleated RBC % 0.0 % (0.0-0.2) Sodium 139 mmol/L (137-145) Potassium 3.8 mmol/L (3.4-5.0) Chloride 107 mmol/L (98-107) Carbon Dioxide 23 mmol/L (22-30) Anion Gap 9 mmol/L (4-12) BUN 12 D mg/dL (9-20) Creatinine 1.10 mg/dL (0.7-1.3) Estim Creat Clear Calc 55 ml/min Estimated GFR > 60 (59 - ) Glucose 89 mg/dL (65-110) POC Capillary Glucose 86 mg/dl (65-105) Calcium 9.3 mg/dL (8.4-10.2) Total Bilirubin 0.5 mg/dL (0.2-1.3) AST 27 U/L (17-59) ALT 14 U/L (6-50) Alkaline Phosphatase 86 U/L (38-126) Total Protein 7.0 g/dL (6.3-8.2) Albumin 3.8 g/dL (3.5-5.1) Patient hx anesthesia problems: none Family hx anesthesia problems: none Results Review: All pre-operative results and documents have been reviewed as part of the pre-operative evaluation. 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
--- NOTE | 2024-03-13 12:21 | PC.NURSE ---
Returned from GI Lab. Report received from
--- NOTE | 2024-03-13 12:56 | PM.DS ---
DS: Admitting Diagnosis Discharge Date 03/13/24 Admitting Diagnosis Symptomatic anemia Bright red blood per rectum Internal hemorrhoids Abnormal EKG Severe protein calorie malnutrition Leukopenia DS: Summary Hospital Course Reason for hospitalization: Symptomatic anemia Bright red blood per rectum Internal hemorrhoids Abnormal EKG Severe protein calorie malnutrition Leukopenia Hospital Course: This is a 78-year-old male who presented to the hospital on 03/11/2024 with bloody stools. Workup in the hospital included a chest x-ray which showed tiny bilateral pleural effusions. Initial labs showed a white blood cell count of 3.6, hemoglobin 8.1, INR 1.1, sodium 132, chloride 97, bicarb 18, BUN 22, EGFR 54, lactate was 1.5, iron 27, ferritin 9.87, proBNP 862. Patient received 1 L normal saline and GI was consulted. Patient received 2 units PRBC and started on Protonix. 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 They did cauterize the areas of radiation proctitis. Vital signs are stable, he is afebrile, currently room air. Patient is stable for discharge at this time. He will need to follow up with his primary care physician in 1 week. Final diagnosis: GI bleed, internal hemorrhoids, radiation proctitis, leukopenia Status at Discharge Cognitive/behavioral status at discharge: Alert and oriented times over Functional status at discharge: independent ambulation Overall status at discharge: patient is progressing back to baseline Time Spent with Patient Time attestation: Total time spent providing and/or coordinating discharge services: Time spent: Greater than 30 minutes Exam Narrative: General: In no acute distress, well nourished Cardiac: Normal S1 and S2. RRR, No murmur, gallops or friction rubs, peripheral pulses intact. Respiratory: Lungs clear to auscultation, no adventitious lung sounds, currently on room air Gastrointestinal: soft, non-distended, non-tender, normoactive bowel sounds. Neuro: Alert and oriented x4 DS: Data Data Completed and Pending Completed studies during hospitalization: Chest x-ray Pending studies at discharge: None Labs on day of discharge: Labs from last 24 hours 03/13/24 03/13/24 11:09 07:35 WBC 4.2 L RBC 3.25 L Hgb 9.3 L Hct 29.5 L MCV 90.8 MCH 28.6 MCHC 31.5 L RDW 14.2 Plt Count 132 L MPV 10.3 Immature Gran % (Auto) 0.2 Neut % (Auto) 73.9 H Lymph % (Auto) 14.4 L [place] % (Auto) 6.7 Eos % (Auto) 4.3 Baso % (Auto) 0.5 Lymph # (Auto) 0.60 L [place] # (Auto) 0.3 Eos # (Auto) 0.2 Baso # (Auto) 0.0 Abs Immat Gran (auto) 0.01 Absolute Neuts (auto) 3.1 Absolute Nucleated RBC 0.000 Nucleated RBC % 0.0 Sodium 139 Potassium 3.8 Chloride 107 Carbon Dioxide 23 Anion Gap 9 BUN 12 D Creatinine 1.10 Estim Creat Clear Calc 55 Estimated GFR > 60 Glucose 89 POC Capillary Glucose 86 Calcium 9.3 Total Bilirubin 0.5 AST 27 ALT 14 Alkaline Phosphatase 86 Total Protein 7.0 Albumin 3.8 Procedures/Treatments: Colonoscopy Discharge Plan Discharge Attending physician on discharge: Norma Villa Consulting providers: Garrick Tinoco Discharging Clinician: Doris Lopez Anticipated Discharge Date/Time: 03/12/24 13:32 Patient Disposition: Home, Self-Care Activity: as tolerated Diet: as tolerated Discharge Instructions: Follow up with primary care doctor in 1 week. 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 Patient Instructions: Antibiotic Form Patient Language: [place] Stand Alone Forms: General Discharge Information Follow-up/Referrals: Jose Bowen MD [Primary Care Provider] - 1 Week Discharge Medications: Continued tamsulosin 0.4 mg capsule 0.4
== END 2024-03-13 14:00 | disposition home or self-care (01) | DRG 377 ==
LOC: ANHED 18:54 → ANH2MED 19:53
PROVIDERS: Internal Medicine; Internal Medicine Gastroenterology; Admitting Provider General Practice; Emergency Provider Physician Assistant; PCP Emergency Medicine; Visit Provider Nurse Practitioner Acute Care
PROC: 0DJD8ZZ Inspection of Lower Intestinal Tract, Via Natural or Artificial Opening Endoscopic (ICD-10-PCS; CPT 45378; principal; 2024-03-13 16:30)
DX: K92.2 Gastrointestinal hemorrhage, unspecified (principal); E43 Unspecified severe protein-calorie malnutrition; D61.818 Other pancytopenia; D62 Acute posthemorrhagic anemia; K62.7 Radiation proctitis; K55.20 Angiodysplasia of colon without hemorrhage; K64.8 Other hemorrhoids; Z68.20 Body mass index [BMI] 20.0-20.9, adult; D50.9 Iron deficiency anemia, unspecified; D63.1 Anemia in chronic kidney disease; I12.9 Hypertensive chronic kidney disease with stage 1 through stage 4 chronic kidney disease, or unspecified chronic kidney disease; N18.30 Chronic kidney disease, stage 3 unspecified; K21.9 Gastro-esophageal reflux disease without esophagitis; E78.2 Mixed hyperlipidemia; F32.A Depression, unspecified; G40.909 Epilepsy, unspecified, not intractable, without status epilepticus; M47.812 Spondylosis without myelopathy or radiculopathy, cervical region; Z85.46 Personal history of malignant neoplasm of prostate
CPT/HCPCS: 36415; 36430; 71046; 80048; 80053; 82607; 82728; 82746; 82948; 83540; 83550; 83605; 83880; 84443; 85014; 85018; 85025; 85027; 85046; 85610; 85730; 86850; 86900; 86901; 86923; 93005; 96360; 99285; A9270; G0378; J2704; J7030; J7050; J7120; P9016

== ENCOUNTER 2024-05-10 15:47 | Observation (INO) | payer OTHER, SELFPAY ==
[2024-05-10] VITALS (22 sets, daily range): BP systolic 111–154; BP diastolic 63–92; PULSE 61–81; RESP 12–23; TEMP 36.1–36.6; O2SAT 98–100; BMI 25.1
--- NOTE | ~2024-05-10 | CT_ITS ---
CT abdomen pelvis w con Ordering provider: Katiuska Rivera APRN History: 78 years Male with . recent history GI bleed . Comparison: January 27, 2015 Technique: CT abdomen and pelvis with IV and without oral contrast. Automated exposure control and it erative reconstruction technique were employed. The dose-length product was 561.35 mGy-cm. 100 mL Omn ipaque 350 was given IV. Findings: VISUALIZED LOWER CHEST: Normal. UPPER ABDOMINAL ORGANS: Liver: Lobulated outline of the liver suggestive of cirrhosis. Clinical correlation advised. Gallbladder: Normal. Spleen: Normal. Stomach/duodenum: Thickened wall in the pyloric area. Clinical correlation advised. Pancreas: Normal. Adrenals: Normal. Kidneys: Normal. PELVIC ORGANS: The bladder is normal. BOWEL AND MESENTERY: Colon: No evidence of diverticulitis. Slightly thickened wall of the rectosigmoid suggestive of colit is. Normal appendix. Small Bowel: Fecalization of the terminal ileum area is noted. No obstruction. Peritoneum/mesentery: No free air. Minimal fluid seen around the liver and right paracolic gutter.. No mesenteric lymphadenopathy. RETROPERITONEUM: Mild atheromatous disease of the abdominal aorta. Atherosclerotic changes in the davidson perior mesenteric artery. Mild to moderate narrowing is noted. Further evaluation advised. No evidenc e of bleeding seen in the small or large bowel. No retroperitoneal lymphadenopathy. MUSCULOSKELETAL: Superficial soft tissues: The superficial soft tissues are normal. Bones: Age appropriate degenerative changes of the spine. IMPRESSION: 1. Lobulated outline of the liver suggestive of cirrhosis. 2. Slightly thickened wall of the stomach in the pyloric area. Clinical correlation advised. 3. Atherosclerotic changes of the superior mesenteric artery with narrowing. Further evaluation advi sed. 4. Slightly thickened wall of the rectosigmoid which may indicate colitis. 5. Fecal material in the right side of the colon with sacralization of the terminal ileum area sugge stive of constipation. 6. Minimal fluid in the area of the right paracolic gutter and around the liver. 7. No definite active bleeding seen Reviewed, dictated and finalized at location A. IMPRESSION: 1. Lobulated outline of the liver suggestive of cirrhosis. 2. Slightly thickened wall of the stomach in the pyloric area. Clinical correl ation advised. 3. Atherosclerotic changes of the superior mesenteric artery with narrowing. F urther evaluation advised. 4. Slightly thickened wall of the rectosigmoid which may indicate colitis. 5. Fecal material in the right side of the colon with sacralization of the ter flori ileum area suggestive of constipation. 6. Minimal fluid in the area of the right paracolic gutter and around the live r. 7. No definite active bleeding seen
--- NOTE | 2024-05-10 17:50 | ECG_ITS ---
Test Date: 2024-05-10 18:27:25 Measurements Intervals [place] Rate: 74 P: 41 DE: 134 QRS: -21 QRSD: 97 T: -26 QT: 374 QTc: 417 Interpretive Statements SINUS RHYTHM LEFT VENTRICULAR HYPERTROPHY AND ST-T CHANGE BORDERLINE ST-T WAVE ABNORMALITY- ANTEROLAT/INF LEADS BORDERLINE ECG Compared to ECG 03/12/2024 00:01:02 No significant changes Electronically Signed On 05-10-2024 19:21:53 CDT by Teddy Ma D.O.
--- NOTE | 2024-05-10 17:52 | ED.GENADULT ---
HPI - General Adult General Chief complaint: Unspecified Stated complaint: bilateral shoulder pain Time Seen by Provider: 05/10/24 17:45 Focused HPI: The patient is a 78-year-old male who presents to the ER with complaints of a recent GI bleed, continued rectal bleeding, recent low hemoglobin requiring blood transfusion, weakness, and upper back pain. He reports he last saw his primary care doctor about a week ago who did blood work but patient never found out the results. Patient reports he was also supposed to see a specialist but that office never called him. He denies chest pain, shortness of breath or other signs of illness. GENERAL: Well-appearing, well-nourished, and in no acute distress, but pale. HEAD: Normocephalic, atraumatic. CHEST: Clear to auscultation. ?No respiratory distress. HEART: Regular rate and rhythm.? NEURO: ?Alert and oriented x3. Patient screened in triage and initial orders placed.? ?Additional care and disposition to be based upon?diagnostic testing and treatment. Related Data Home Medications Medication Instructions Recorded Confirmed tamsulosin 0.4 mg capsule 0.4 mg PO HS 05/03/23 05/21/24 relugolix 120 mg tablet (Orgovyx) 120 mg PO 1600 06/01/23 05/21/24 levetiracetam 500 mg tablet 500 mg PO BID 03/11/24 05/21/24 losartan 50 mg-hydrochlorothiazide 1 tablet PO QNOON 03/11/24 05/21/24 12.5 mg tablet misoprostol 200 mcg tablet 200 mcg PO BID 03/11/24 05/21/24 omeprazole 40 mg capsule,delayed 40 mg PO DAILY 05/10/24 05/21/24 release Allergies Allergy/AdvReac Type Severity Reaction Status Date / Time No Known Allergies Allergy Verified 05/21/24 13:20 Review of Systems Review of Systems: All systems reviewed & are unremarkable except as noted in HPI and below PMFSH Past Medical History Medical History Abnormal CT scan, stomach Cervical spondylosis CKD (chronic kidney disease), stage III Depression Essential hypertension Gastroesophageal reflux disease without esophagitis HTN (hypertension) Internal hemorrhoids Noted on colonoscopy August 2021 Liver cirrhosis secondary to PALMER Mixed hyperlipidemia 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 He smoked briefly when he was a young man. He drinks alcohol on occasion but only in moderation. He used to drink a little bit heavier than he does now but he was still drink an alcoholic beverage about once a month. He denies any illicit substance history. Code status: Full code Surrogate decision maker: Lo Winston () Smoking status: Never smoker Alcohol intake: former Substance use: never Substance use type: does not use Do You Feel Safe in your Home?: Yes Lack of Transportation: No Lack of Food: Never True Current Housing: I Have Housing Concerned About Future Housing: No Difficulty Paying Gas/Electric Bills: No Difficulty Paying for Meds: No Currently Unemployed: No Education: High School Diploma/GED Difficulty w/ Childcare or Family Care: No Living arrangements:
[2024-05-10] MEDS: FAMOTIDINE 20 MG TABLET PO (18:24)
[2024-05-10] MEDS: HYDROcodone/acetaminophen (*CRX) 5-325 MG TABLET 1 TAB PO (18:24)
[2024-05-10 18:36] LABS: Basophils Percent Auto 0.3 % (0.2-1.2); Eosinophils Absolute Auto 0.2 K/mm3 (0-0.3); Eosinophils Percent Auto 5.7 % (0-4.4); Hematocrit 22.3 % (42.0-52.0); Immature Granulocyte Absolute 0.02 K/mm3 (0.00-0.031); Immature Granulocyte Percent A 0.5 % (0-0.5); Lymphocytes Percent Auto 20.6 % (18.3-44.2); Mean Corpuscular Hemoglobin 27.2 pg (26-34); Mean Corpuscular Volume 90.7 fl (80-100); Mean Platelet Volume 10.1 fl (7.4-10.4); Monocytes Absolute Auto 0.3 K/mm3 (0.1-0.6); Monocytes Percent Auto 6.7 % (2.6-8.5); Neutrophils Absolute Auto 2.6 K/mm3 (1.3-6.7); Neutrophils Percent Auto 66.2 % (45.5-73.1); Platelet Count Result 117 k/mm3 (150-375); Red Blood Count 2.46 M/mm3 (4.6-6.20); White Blood Count 3.9 K/mm3 (4.5-10.0)
[2024-05-10 18:45] LABS: Hemoglobin 6.7 g/dL (14.0-18.0)
[2024-05-10 18:46] LABS: INR 1.1; Partial Thromboplastin Time 27.6 Seconds (22.3-36.8); Prothrombin Time 14.1 Seconds (11.1-14.7)
[2024-05-10 18:50] LABS: Alanine Aminotransferase 42 U/L (6-50); Albumin Level 3.6 g/dL (3.5-5.1); Alkaline Phosphatase 93 U/L (38-126); Anion Gap 7 mmol/L (4-12); Aspartate Amino Transferase 47 U/L (17-59); Bilirubin,Total 0.3 mg/dL (0.2-1.3); Blood Urea Nitrogen 27 mg/dL (9-20); Calcium 9.2 mg/dL (8.4-10.2); Carbon Dioxide 25 mmol/L (22-30); Chloride 102 mmol/L (98-107); Estimated CRCL calculation 55 ml/min; Estimated Glomerular Filt Rate > 60; Glucose 83 mg/dL (65-110); Lipase 60 U/L (23-300); Potassium 4.6 mmol/L (3.4-5.0); Sodium 134 mmol/L (137-145)
[2024-05-10 19:08] LABS: Troponin I 0.056 ng/mL (0.000-0.034)
[2024-05-10] MEDS: SODIUM CHLORIDE 0.9% IV 250 ML 30 ML IV CONT (19:50)
[2024-05-10] MEDS: TUBING, BLOOD PLUM PUMP TUBING 1 EACH XX (19:57)
--- NOTE | 2024-05-10 19:57 | PC.NURSE ---
patient unable to urinate at this time and would prefer to decline straight catheter. educated them to use call light to notify staff with any urge to urinate. blood transfusion consent form signed and placed on patients paper chart.
[2024-05-10 20:26] LABS: Add Urine Microscopic? NO; Appearance Urine Clear (Clear); Bilirubin Urine Negative (Negative); Blood Urine Negative (Negative); Color Urine Yellow (Yellow); Glucose Urine UA Negative (Negative); Ketones Urine Negative (Negative); Leukocyte Esterase Ur Negative LEU/UL (Negative); Nitrate Urine Negative (Negative); Protein Urine Negative (Negative); Specific Grav Ur 1.011 (1.001-1.035); Urobilinogen Urine 0.2 mg/dL (<2.0); pH Urine 6.5 (5.0-9.0)
[2024-05-10] MEDS: levETIRAcetam 500 MG TABLET PO (21:03)
--- NOTE | 2024-05-10 21:04 | PM.IMHP ---
H&P: HPI History of Present Illness Date/Time: 05/10/24 21:04 Chief Complaint: bilateral shoulder pain Narrative: This is a 78-year-old male with past medical history significant for obstructive sleep apnea on CPAP, benign prostatic hyperplasia, chronic kidney disease, depression, hypertension, GERD, seizure disorder, patient presents to the emergency room with few days of rectal bleed. Patient also feeling dizzy, fatigue, having palpitations, shortness of breath denies any hematemesis or coffee-ground emesis. Preliminary workup was significant for elevation of troponin, hemoglobin of 6.7 CT abdomen pelvis w con Ordering provider: Katiuska Rivera APRN History: 78 years Male with . recent history GI bleed . Comparison: January 27, 2015 Technique: CT abdomen and pelvis with IV and without oral contrast. Automated exposure control and iterative reconstruction technique were employed. The dose-length product was 561.35 mGy-cm. 100 mL Omnipaque 350 was given IV. Findings: VISUALIZED LOWER CHEST: Normal. UPPER ABDOMINAL ORGANS: Liver: Lobulated outline of the liver suggestive of cirrhosis. Clinical correlation advised. Gallbladder: Normal. Spleen: Normal. Stomach/duodenum: Thickened wall in the pyloric area. Clinical correlation advised. Pancreas: Normal. Adrenals: Normal. Kidneys: Normal. PELVIC ORGANS: The bladder is normal. BOWEL AND MESENTERY: Colon: No evidence of diverticulitis. Slightly thickened wall of the rectosigmoid suggestive of colitis. Normal appendix. Small Bowel: Fecalization of the terminal ileum area is noted. No obstruction. Peritoneum/mesentery: No free air. Minimal fluid seen around the liver and right paracolic gutter.. No mesenteric lymphadenopathy. RETROPERITONEUM: Mild atheromatous disease of the abdominal aorta. Atherosclerotic changes in the superior mesenteric artery. Mild to moderate narrowing is noted. Further evaluation advised. No evidence of bleeding seen in the small or large bowel. No retroperitoneal lymphadenopathy. MUSCULOSKELETAL: Superficial soft tissues: The superficial soft tissues are normal. Bones: Age appropriate degenerative changes of the spine. IMPRESSION: 1. Lobulated outline of the liver suggestive of cirrhosis. 2. Slightly thickened wall of the stomach in the pyloric area. Clinical correlation advised. 3. Atherosclerotic changes of the superior mesenteric artery with narrowing. Further evaluation advised. 4. Slightly thickened wall of the rectosigmoid which may indicate colitis. 5. Fecal material in the right side of the colon with sacralization of the terminal ileum area suggestive of constipation. 6. Minimal fluid in the area of the right paracolic gutter and around the liver. 7. 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
--- NOTE | 2024-05-10 22:03 | ECG_ITS ---
Test Date: 2024-05-10 22:07:30 Measurements Intervals [place] Rate: 66 P: 34 TN: 167 QRS: -24 QRSD: 97 T: -33 QT: 392 QTc: 412 Interpretive Statements SINUS RHYTHM LEFT VENTRICULAR HYPERTROPHY AND ST-T CHANGE ST-T WAVE ABNORMALITY IN INFERIOR LEADS- CONSIDER ISCHEMIA BASELINE ARTIFACT- I, III, AVL ABNORMAL ECG Compared to ECG 05/10/2024 18:27:25 ST-T WAVE ABNORMALITY NOW PRESENT Electronically Signed On 05-11-2024 06:48:18 CDT by Teddy Ma D.O.
[2024-05-10 22:15] LABS: Free T4 Free Thyroxine Reflex 1.14 ng/dL (0.78-2.19)
[2024-05-10 22:49] LABS: Troponin I 0.052 ng/mL (0.000-0.034)
--- NOTE | 2024-05-10 23:26 | ADMIMU ---
This patient, Perico Winston Jr., was admitted to IMU status, and placed in Intensive Care Unit-4 on 05/10/24 at 2232. Patient/family oriented to hospital policies and general routines including ID bracelet, bed and alarms, visiting hours, pain management, procedures, bathroom and other care routines, personal items, smoking policy, room service/diet, and visiting hours. Valuables list has been completed. Information on how to activate the Rapid Response Team has been discussed. Patient/Family are encouraged to report perceived risks to care and to ask questions if they do not understand what they are told or what they should do.
[2024-05-10] MEDS: ACETAMINOPHEN 325 MG TABLET 650 MG PO (23:31)
[2024-05-10] MEDS: PEG (High)/E-LYTE SOLN 4,000 ML BTL 3000 ML PO (23:31)
[2024-05-10 23:39] LABS: Total Triiodothyronine (T3) 1.72 NG/ML (0.97-1.69)
[2024-05-11] VITALS (17 sets, daily range): BP systolic 125–165; BP diastolic 64–89; PULSE 60–89; RESP 9–18; TEMP 36.1–36.8; O2SAT 98–100
[2024-05-11 00:38] LABS: Hematocrit 26.6 % (42.0-52.0); Hemoglobin 8.1 g/dL (14.0-18.0)
[2024-05-11 01:04] LABS: Troponin I 0.048 ng/mL (0.000-0.034)
[2024-05-11] MEDS: SODIUM CHLORIDE 0.9% IV 1,000 ML 125 ML IV CONT (01:13)
--- NOTE | 2024-05-11 03:15 | PC.NURSE ---
The patient completed his bowel prep at approx. [id number].
[2024-05-11 07:46] LABS: Hematocrit 27.5 % (42.0-52.0); Hemoglobin 8.3 g/dL (14.0-18.0); Mean Corpuscular HGB Conc 30.2 g/dl (32-36); Mean Corpuscular Hemoglobin 27.8 pg (26-34); Mean Platelet Volume 10.8 fl (7.4-10.4); Platelet Count Result 126 k/mm3 (150-375); Red Blood Count 2.99 M/mm3 (4.6-6.20); White Blood Count 3.3 K/mm3 (4.5-10.0)
[2024-05-11 07:55] LABS: Alanine Aminotransferase 39 U/L (6-50); Albumin Level 3.8 g/dL (3.5-5.1); Alkaline Phosphatase 88 U/L (38-126); Anion Gap 12 mmol/L (4-12); Aspartate Amino Transferase 47 U/L (17-59); Bilirubin,Total 0.6 mg/dL (0.2-1.3); Blood Urea Nitrogen 23 mg/dL (9-20); Carbon Dioxide 23 mmol/L (22-30); Chloride 97 mmol/L (98-107); Estimated CRCL calculation 60 ml/min; Estimated Glomerular Filt Rate > 60; Glucose 76 mg/dL (65-110); Sodium 132 mmol/L (137-145)
--- NOTE | 2024-05-11 08:45 | PC.NURSE ---
To GI Lab per Wheelchair, IV x1 20 R AC Report given to MAGGIE Muhammad
[2024-05-11] MEDS: LACTATED RINGERS 1,000 ML 150 ML IV CONT (09:02)
--- NOTE | 2024-05-11 09:16 | WPDANESEPPF ---
Anes - Initial Pre Proc Eval Procedure: Operation Date: 05/11/24 15:00 Proposed Procedures p Colonoscopy - Garrick Tinoco MD Date/Time: 05/11/24 09:16 Surgeon: Juanis Burton MD Pre Op Diagnosis: GI Bleed, Anemia, Elevated Troponin Patient Data Age: 78 Gender: M Height: 1.83 m Weight: 84 kg Last Vital Signs Temp 36.1 C L 05/11/24 09:00 Pulse 75 05/11/24 09:00 Resp 18 05/11/24 09:00 BP 154/64 H 05/11/24 09:00 Pulse Ox 100 05/11/24 09:00 O2 Del Method Room Air 05/11/24 09:00 Allergies Allergy/AdvReac Type Severity Reaction Status Date / Time No Known Allergies Allergy Verified 05/11/24 08:57 Home Medications Medication Instructions Recorded Confirmed Type tamsulosin 0.4 mg capsule 0.4 mg PO HS 05/03/23 05/10/24 History relugolix 120 mg tablet (Orgovyx) 120 mg PO 1600 06/01/23 05/10/24 History hydrocortisone acetate 25 mg 25 mg RECTAL DAILY #12 ea 02/22/24 05/10/24 Rx rectal suppository (Anusol-HC) diclofenac sodium 75 mg 75 mg PO BID 03/11/24 05/10/24 History tablet,delayed release levetiracetam 500 mg tablet 500 mg PO BID 03/11/24 05/10/24 History losartan 50 mg-hydrochlorothiazide 1 tablet PO QNOON 03/11/24 05/10/24 History 12.5 mg tablet misoprostol 200 mcg tablet 200 mcg PO BID 03/11/24 05/10/24 History sertraline 50 mg tablet 50 mg PO QNOON 03/11/24 05/10/24 History omeprazole 40 mg capsule,delayed 40 mg PO DAILY 05/10/24 05/10/24 History release Laboratory Tests 05/10/24 05/10/24 05/10/24 18:30 20:20 22:06 WBC 3.9 L K/mm3 (4.5-10.0) RBC 2.46 L M/mm3 (4.6-6.20) Hgb 6.7 L* g/dL (14.0-18.0) Hct 22.3 L % (42.0-52.0) MCV 90.7 fl (80-100) MCH 27.2 pg (26-34) MCHC 30.0 L g/dl (32-36) RDW 16.0 H % (11.5-14.5) Plt Count 117 L k/mm3 (150-375) MPV 10.1 fl (7.4-10.4) Immature Gran % (Auto) 0.5 % (0-0.5) Neut % (Auto) 66.2 % (45.5-73.1) Lymph % (Auto) 20.6 % (18.3-44.2) Bryan % (Auto) 6.7 % (2.6-8.5) Eos % (Auto) 5.7 H % (0-4.4) Baso % (Auto) 0.3 % (0.2-1.2) Lymph # (Auto) 0.80 L K/mm3 (0.9-3.2) Bryan # (Auto) 0.3 K/mm3 (0.1-0.6) Eos # (Auto) 0.2 K/mm3 (0-0.3) Baso # (Auto) 0.0 K/mm3 (0.0-0.1) Abs Immat Gran (auto) 0.02 K/mm3 (0.00-0.031) Absolute Neuts (auto) 2.6 K/mm3 (1.3-6.7) Absolute Nucleated RBC 0.000 K/mm3 (0.0-0.012) Nucleated RBC % 0.0 % (0.0-0.2) PT 14.1 Seconds (11.1-14.7) INR 1.1 APTT 27.6 Seconds (22.3-36.8) Sodium 134 L mmol/L (137-145) Potassium 4.6 mmol/L (3.4-5.0) Chloride 102 mmol/L (98-107) Carbon Dioxide 25 mmol/L (22-30) Anion Gap 7 mmol/L (4-12) BUN 27 H D mg/dL (9-20) Creatinine 1.10 mg/dL (0.7-1.3) Estim Creat Clear Calc 55 ml/min Estimated GFR > 60 (59 - ) Glucose 83 mg/dL (65-110) Calcium 9.2 mg/dL (8.4-10.2) Magnesium 2.0 mg/dL (1.6-2.3) Total Bilirubin 0.3 mg/dL (0.2-1.3) AST 47 U/L (17-59) ALT 42 U/L (6-50) Alkaline Phosphatase 93 U/L (38-126) Troponin I 0.056 H* ng/mL 0.052 H* ng/mL (0.000-0.034) (0.000-0.034) Total Protein 7.0 g/dL (6.3-8.2) Albumin 3.6 g/dL (3.5-5.1) Lipase 60 U/L (23-300) TSH (Reflex) 4.640 uIU/mL (0.465-4.68) Free T4 1.14 ng/dL (0.78-2.19) Total T3 1.72 H NG/ML (0.97-1.69) Urine Color Yellow (Yellow) Urine Appearance Clear (Clear) Urine pH 6.5 (5.0-9.0) Ur Specific [place] 1.011 (1.001-1.035) Urine Protein Negative mg/dL (Negative) Urine Glucos
--- NOTE | 2024-05-11 09:25 | WPDGICN ---
Assessment and Plan Assessment and plan (1) Bright red blood per rectum: Code(s): K62.5 - Hemorrhage of anus and rectum Status: Acute Assessment and Plan: probably again from radiation proctitis, will proceed with another colonoscopy and APC treatment also noted mild pancytopenia, this probably will need to be evaluated by sports medicine specialist (2) Radiation proctitis: Code(s): K62.7 - Radiation proctitis Status: Acute Assessment and Plan: APC if found again this can explain rectal bleeding more recommendations after scope (3) Pancytopenia: Code(s): D61.818 - Other pancytopenia Status: Acute (4) Elevated troponin I level: Code(s): R79.89 - Other specified abnormal findings of blood chemistry Status: Acute Assessment and Plan: probably due to symptomatic anemia monitor (5) Symptomatic anemia: Code(s): D64.9 - Anemia, unspecified Status: Acute GI Consult Note Consult date/time: 05/11/24 09:25 Reason for consult: rectal bleeding, acute on chronic anemia HPI: Perico Conor Winston Jr. is a 78 year old male with history of CKD stage 3, depression, HTN, GERD, HLD, prostate cancer, personal history of colon polyps, seizure disorder and known radiation proctitis last time treated 02/2024. Here with intermittent blood in stools for last week, also more fatigue and feeling tired. Hgb down to 6.7 (baseline 9), given blood transfusion and admitted to hospital, he completed bowel prep last night. Review of Systems Constitutional: Constitutional: Reports lethargy Eyes: Eyes: Denies blurry vision ENT: Reports Normal hearing present Cardiovascular: Cardiovascular: Denies chest pain Respiratory: Respiratory: Denies cough Gastrointestinal: Gastrointestinal: Reports hematochezia Genitourinary: Genitourinary: Denies hematuria Musculoskeletal: Musculoskeletal: Denies neck pain Integumentary/Breasts: Skin/Breast: Denies rash Neurologic: Denies Abnormal speech present Psychiatric: Psychiatric: Denies behavioral changes [facility] Past Medical History Medical History (Updated 05/11/24 @ 14:08 by Garrick Tinoco MD) Cervical spondylosis CKD (chronic kidney disease), stage III Depression Essential hypertension Gastroesophageal reflux disease without esophagitis HTN (hypertension) Internal hemorrhoids Noted on colonoscopy August 2021 Mixed hyperlipidemia 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 He smoked briefly when he was a young man. He drinks alcohol on occasion but only in moderation. He used to drink a little bit heavier than he does now but he was still drink an alcoholic beverage about once a month. He denies any illicit substance history. Code status: Full code Surrogate decision maker: Lo Winston () Smoking status: Never smoker Alcohol intake: former Substance use: never Substance use type: does not use Do You Feel Safe in your Home?: Yes Lack of Transportation: No Lack of Food: Never True Current Housing: I Have Housing C
--- NOTE | 2024-05-11 10:45 | PC.NURSE ---
Returned from GI Lab. Report given to Le London RN This RN currently unavailable for report
--- NOTE | 2024-05-11 11:21 | PM.IMPN ---
Progress Note: A&P Assessment and Plan (1) Symptomatic anemia: Code(s): D64.9 - Anemia, unspecified Status: Acute (2) Elevated troponin I level: Code(s): R79.89 - Other specified abnormal findings of blood chemistry Status: Acute (3) Bright red blood per rectum: Code(s): K62.5 - Hemorrhage of anus and rectum Status: Acute (4) Gastroesophageal reflux disease without esophagitis: Code(s): K21.9 - Gastro-esophageal reflux disease without esophagitis Status: Acute (5) CKD (chronic kidney disease), stage III: Code(s): N18.30 - Chronic kidney disease, stage 3 unspecified Status: Acute (6) HTN (hypertension): Code(s): I10 - Essential (primary) hypertension Status: Acute (7) Primary osteoarthritis of both shoulders: Code(s): M19.011 - Primary osteoarthritis, right shoulder; M19.012 - Primary osteoarthritis, left shoulder Status: Acute Plan This is a 78-year-old male who presented with several days of rectal bleed on and off associated dizziness and generalized weakness and palpitations. Denies any hematemesis or coffee-ground emesis. He had recent history of similar episode and February of 2024. Not on any anticoagulation or antiplatelets. Does take NSAIDs regularly. ED evaluation showed stable vitals. Hemoglobin came back low at 6.7 underwent transfusion with stable hemoglobin post transfusion. GI consulted. CT abdomen pelvis with contrast showed lobulated outline of liver consistent with cirrhosis of liver. Significant thickened wall of the stomach and pyloric area. Atherosclerotic change the superior mesenteric artery with narrowing. Slightly thickened antonio of the rectosigmoid which may indicate colitis. Fecal material on the right side of the colon with sacralization of the terminal ileum suggestive of constipation. No signs of bleeding. He underwent colonoscopy 05/11/2024: Multiple angioectasias was present rectum consistent with radiation proctitis. There were stigmata of bleeding from the angioectasias. The lesions were cauterized with APC. Recent similar procedure done in February of 2024 Chronic anemia with mild thrombocytopenia and leukopenia Iron saturation low indicating of iron deficiency ferritin of 7. B12 was normal. Folate was normal 02/2024 Will have hematology consultation. Will place on PPI may need an EGD will stop her diclofenac Thickening of the stomach could be gastritis related to chronic NSAID use. History of prostate cancer treated with radiation and ADT Depression CKD stage 3 GERD Hypertension Hyperlipidemia Seizure disorder Cervical spondylosis DVT prophylaxis SCDs Code status full code Subjective Date/time seen: 05/11/24 11:21 Interval history: Chart reviewed. Underwent colonoscopy earlier today. No further rectal bleed. No abdominal pain nausea vomiting. Weakness persist. Review of Systems Review of Systems: All systems reviewed & are unremarkable except as noted in HPI and below Exam Narrative: General: In no acute distress, well nourished Head: atraumatic, no encephalopathy Eyes: EOMI, PERRLA, sclera clear ENT: moist mucous membranes, nasal passages clear Neck: supple, no JVD, no adenopathy, trachea midline Cardiac: Normal S1 and S2. RRR, No murmur, gallops or friction rubs, peripheral pulses intact. Respiratory: Lungs clear to auscultation, no adventitious lung sounds, currently on room air Gastrointestinal: soft, non-distended, non-tender, normoactive bowel sounds. : voiding without difficulty. Extremities: moves all extremities well, no edema Skin: clean, dry, intact. No wounds or lesions. Neuro: Alert and oriented x4, cranial nerves intact, no neuro deficits. Psych: normal mood, normal affect, interactive Objective Data Vital Signs Vital Signs: Vital Signs - 24 hr 05/10/24 16:00 05/10/24 18:36 05/10/24 19:53 Temperature 97.8 F 97.8 F 97.5 F L Pulse Rate 75 71 75 Respiratory Rat
[2024-05-11] MEDS: levETIRAcetam 500 MG TABLET PO ×2 (11:36→20:10)
[2024-05-11] MEDS: PANTOPRAZOLE 40 MG TABLET PO ×2 (11:36→20:10)
[2024-05-11] MEDS: miSOPROStol 200 MCG TABLET PO ×2 (11:36→20:10)
[2024-05-11] MEDS: SERTRALINE HCL 50 MG TABLET PO (11:37)
[2024-05-11 11:54] LABS: Immature Reticulocyte Fraction 24.7 % (3.0-15.9); Reticulocyte Hemoglobin Conten 21.5 pg (28.2-36.6); Reticulocyte Percent 2.34 % (0.7-4.3); Reticulocytes Absolute 0.07 10^6/uL (0.02-0.10)
[2024-05-11 12:48] LABS: Lactate Dehydrogenase 225 U/L (120-246)
[2024-05-11] MEDS: IRON SUCROSE COMPLEX 200 MG, IRON SUCROSE COMPLEX 100 MG in SODIUM CHLORIDE 0.9% IV 250 ML 176.67 MG IVPB (13:21)
--- NOTE | 2024-05-11 18:39 | PHAR ---
Pt. daughter brought in and gave patient home dose of Orgovyx. Did not notify RN prior to administering nor was she able to provide prescription bottle for pharmacy verification. Hospitalist notified. Educated patient/family on process of nonformulary medications for future visits. PER [facility] COMMUNICATION ORDER
[2024-05-11] MEDS: TAMSULOSIN HCL 0.4 MG CAPSULE PO (20:10)
[2024-05-12] VITALS (8 sets, daily range): BP systolic 129–145; BP diastolic 70–89; PULSE 67–87; RESP 12–15; TEMP 36.4–36.8; O2SAT 100
[2024-05-12 04:21] LABS: Basophils Percent Auto 0.5 % (0.2-1.2); Eosinophils Absolute Auto 0.2 K/mm3 (0-0.3); Eosinophils Percent Auto 3.9 % (0-4.4); Hematocrit 24.2 % (42.0-52.0); Hemoglobin 7.4 g/dL (14.0-18.0); Immature Granulocyte Absolute 0.01 K/mm3 (0.00-0.031); Immature Granulocyte Percent A 0.2 % (0-0.5); Lymphocytes Absolute Auto 0.51 K/mm3 (0.9-3.2); Lymphocytes Percent Auto 12.5 % (18.3-44.2); Mean Corpuscular HGB Conc 30.6 g/dl (32-36); Mean Corpuscular Hemoglobin 27.4 pg (26-34); Mean Corpuscular Volume 89.6 fl (80-100); Mean Platelet Volume 9.9 fl (7.4-10.4); Monocytes Absolute Auto 0.3 K/mm3 (0.1-0.6); Monocytes Percent Auto 7.1 % (2.6-8.5); Neutrophils Absolute Auto 3.1 K/mm3 (1.3-6.7); Neutrophils Percent Auto 75.8 % (45.5-73.1); Platelet Count Result 109 k/mm3 (150-375); Red Cell Distribution Width 15.8 % (11.5-14.5); White Blood Count 4.1 K/mm3 (4.5-10.0)
[2024-05-12 04:33] LABS: Alanine Aminotransferase 29 U/L (6-50); Albumin Level 3.4 g/dL (3.5-5.1); Alkaline Phosphatase 88 U/L (38-126); Anion Gap 7 mmol/L (4-12); Aspartate Amino Transferase 37 U/L (17-59); Bilirubin,Total 0.4 mg/dL (0.2-1.3); Blood Urea Nitrogen 14 mg/dL (9-20); Calcium 9.3 mg/dL (8.4-10.2); Carbon Dioxide 25 mmol/L (22-30); Chloride 105 mmol/L (98-107); Estimated CRCL calculation 55 ml/min; Estimated Glomerular Filt Rate > 60; Glucose 80 mg/dL (65-110); Potassium 5.1 mmol/L (3.4-5.0); Sodium 137 mmol/L (137-145)
[2024-05-12] MEDS: PANTOPRAZOLE 40 MG TABLET PO (08:31)
[2024-05-12] MEDS: levETIRAcetam 500 MG TABLET PO (08:31)
[2024-05-12] MEDS: miSOPROStol 200 MCG TABLET PO (08:31)
--- NOTE | 2024-05-12 09:58 | PM.IMPN ---
Progress Note: A&P Assessment and Plan (1) Symptomatic anemia: Code(s): D64.9 - Anemia, unspecified Status: Acute (2) Elevated troponin I level: Code(s): R79.89 - Other specified abnormal findings of blood chemistry Status: Acute (3) Bright red blood per rectum: Code(s): K62.5 - Hemorrhage of anus and rectum Status: Acute (4) Gastroesophageal reflux disease without esophagitis: Code(s): K21.9 - Gastro-esophageal reflux disease without esophagitis Status: Acute (5) CKD (chronic kidney disease), stage III: Code(s): N18.30 - Chronic kidney disease, stage 3 unspecified Status: Acute (6) HTN (hypertension): Code(s): I10 - Essential (primary) hypertension Status: Acute (7) Primary osteoarthritis of both shoulders: Code(s): M19.011 - Primary osteoarthritis, right shoulder; M19.012 - Primary osteoarthritis, left shoulder Status: Acute Plan This is a 78-year-old male who presented with several days of rectal bleed on and off associated dizziness and generalized weakness and palpitations. Denies any hematemesis or coffee-ground emesis. He had recent history of similar episode and February of 2024. Not on any anticoagulation or antiplatelets. Does take NSAIDs regularly. ED evaluation showed stable vitals. Hemoglobin came back low at 6.7 underwent transfusion with stable hemoglobin post transfusion. GI consulted. CT abdomen pelvis with contrast showed lobulated outline of liver consistent with cirrhosis of liver. Significant thickened wall of the stomach and pyloric area. Atherosclerotic change the superior mesenteric artery with narrowing. Slightly thickened antonio of the rectosigmoid which may indicate colitis. Fecal material on the right side of the colon with sacralization of the terminal ileum suggestive of constipation. No signs of bleeding. He underwent colonoscopy 05/11/2024: Multiple angioectasias was present rectum consistent with radiation proctitis. There were stigmata of bleeding from the angioectasias. The lesions were cauterized with APC. Recent similar procedure done in February of 2024 Chronic anemia with mild thrombocytopenia and leukopenia Iron saturation low indicating of iron deficiency ferritin of 7. B12 was normal. Folate was normal 02/2024 Will have hematology consultation. Will place on PPI may need an EGD will stop her diclofenac Thickening of the stomach could be gastritis related to chronic NSAID use. History of prostate cancer treated with radiation and ADT Depression CKD stage 3 GERD Hypertension Hyperlipidemia Seizure disorder Cervical spondylosis DVT prophylaxis SCDs Code status full code Subjective Date/time seen: 05/12/24 09:58 Review of Systems Review of Systems: All systems reviewed & are unremarkable except as noted in HPI and below Exam Narrative: General: In no acute distress, well nourished Head: atraumatic, no encephalopathy Eyes: EOMI, PERRLA, sclera clear ENT: moist mucous membranes, nasal passages clear Neck: supple, no JVD, no adenopathy, trachea midline Cardiac: Normal S1 and S2. RRR, No murmur, gallops or friction rubs, peripheral pulses intact. Respiratory: Lungs clear to auscultation, no adventitious lung sounds, currently on room air Gastrointestinal: soft, non-distended, non-tender, normoactive bowel sounds. : voiding without difficulty. Extremities: moves all extremities well, no edema Skin: clean, dry, intact. No wounds or lesions. Neuro: Alert and oriented x4, cranial nerves intact, no neuro deficits. Psych: normal mood, normal affect, interactive Objective Data Vital Signs Vital Signs: Vital Signs - 24 hr 05/11/24 10:03 05/11/24 10:00 05/11/24 12:00 Temperature 97.9 F Pulse Rate 73 78 74 Respiratory Rate 18 14 Blood Pressure 143/69 H 155/89 H Pulse Oximetry 100 100 Oxygen Delivery Room Air 05/11/24 12:00 05/11/24 14:00 05/11/24 12:00 Temperature Puls
[2024-05-12] MEDS: SERTRALINE HCL 50 MG TABLET PO (12:03)
--- NOTE | 2024-05-12 13:01 | PM.DS ---
DS: Admitting Diagnosis Discharge Date 05/12/24 Admitting Diagnosis rectal bleed DS: Discharge Diagnosis Discharge Diagnosis (1) Symptomatic anemia: Code(s): D64.9 - Anemia, unspecified Status: Acute (2) Elevated troponin I level: Code(s): R79.89 - Other specified abnormal findings of blood chemistry Status: Acute (3) Bright red blood per rectum: Code(s): K62.5 - Hemorrhage of anus and rectum Status: Acute (4) Gastroesophageal reflux disease without esophagitis: Code(s): K21.9 - Gastro-esophageal reflux disease without esophagitis Status: Acute (5) CKD (chronic kidney disease), stage III: Code(s): N18.30 - Chronic kidney disease, stage 3 unspecified Status: Acute (6) HTN (hypertension): Code(s): I10 - Essential (primary) hypertension Status: Acute (7) Primary osteoarthritis of both shoulders: Code(s): M19.011 - Primary osteoarthritis, right shoulder; M19.012 - Primary osteoarthritis, left shoulder Status: Acute DS: Summary Hospital Course Hospital Course: This is a 78-year-old male who presented with several days of rectal bleed on and off associated dizziness and generalized weakness and palpitations. Denies any hematemesis or coffee-ground emesis. He had recent history of similar episode and February of 2024. Not on any anticoagulation or antiplatelets. Does take NSAIDs regularly. ED evaluation showed stable vitals. Hemoglobin came back low at 6.7 underwent transfusion with stable hemoglobin post transfusion. GI consulted. CT abdomen pelvis with contrast showed lobulated outline of liver consistent with cirrhosis of liver. Significant thickened wall of the stomach and pyloric area. Atherosclerotic change the superior mesenteric artery with narrowing. Slightly thickened antonio of the rectosigmoid which may indicate colitis. Fecal material on the right side of the colon with sacralization of the terminal ileum suggestive of constipation. No signs of bleeding. He underwent colonoscopy 05/11/2024: Multiple angioectasias was present rectum consistent with radiation proctitis. There were stigmata of bleeding from the angioectasias. The lesions were cauterized with APC. Recent similar procedure done in February of 2024. No further bleeding. H&H post transfusion remained stable Chronic anemia with mild thrombocytopenia and leukopenia. Hematology-Oncology consulted. Will need regular follow-up Iron saturation low indicating of iron deficiency ferritin of 7. B12 was normal. Folate was normal 02/2024.. Will place on PPI may need an EGD will stop his diclofenac. Received IV Venofer during the hospital stay. Thickening of the stomach could be gastritis related to chronic NSAID use. Add PPI and stop diclofenac History of prostate cancer treated with radiation and ADT Depression on sertraline will increase the dose CKD stage 3 GERD Hypertension Hyperlipidemia Seizure disorder Cervical spondylosis DVT prophylaxis SCDs Code status full code Time Spent with Patient Time attestation: Total time spent providing and/or coordinating discharge services: 45 minutes Exam Narrative: General: In no acute distress, well nourished Head: atraumatic, no encephalopathy Eyes: EOMI, PERRLA, sclera clear ENT: moist mucous membranes, nasal passages clear Neck: supple, no JVD, no adenopathy, trachea midline Cardiac: Normal S1 and S2. RRR, No murmur, gallops or friction rubs, peripheral pulses intact. Respiratory: Lungs clear to auscultation, no adventitious lung sounds, currently on room air Gastrointestinal: soft, non-distended, non-tender, normoactive bowel sounds. : voiding without difficulty. Extremities: moves all extremities well, no edema Skin: clean, dry, intact. No wounds or lesions. Neuro: Alert and oriented x4, cranial nerves intact, no neuro deficits. Psych: normal mood, normal affect, interactive DS: Data Data Completed and Pending Labs
[2024-05-12 13:12] LABS: Hematocrit 24.4 % (42.0-52.0); Hemoglobin 7.7 g/dL (14.0-18.0)
--- NOTE | 2024-05-12 14:03 | WPDGIPROGNO ---
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: Code(s): K75.81 - Nonalcoholic steatohepatitis (PALMER); K74.60 - Unspecified cirrhosis of liver Status: Acute Assessment and Plan: new diagnosis will need follow-up in office and then can get blood work to assess for chronic liver conditions son says that he was diagnosed in the past with fatty liver (5) Abnormal CT scan, stomach: Code(s): R93.3 - Abnormal findings on diagnostic imaging of other parts of digestive tract Status: Acute Assessment and Plan: will arrange EGD as outpatient (noted thickening of stomach), also needs to assess if portal htn given new diagnosis of cirrhosis Subjective Date/time seen: 05/12/24 14:03 Interval history: yesterday APC of radiation proctitis stable today and eating Review of Systems Review of Systems: All systems reviewed & are unremarkable except as noted in HPI and below Exam Const: General: comfortable and no acute distress HENMT: Face/Nose/Sinus: Normal nares present Eyes: General: appearance normal, both eyes and all related structures Neck: Neck: supple Resp: Auscultation: clear to auscultation bilaterally Cardio: Rate: regular rate Rhythm: regular rhythm GI: Inspection: non-distended GI Palp: Yes Soft to palpation and No Tenderness to palpation present (GI) Auscultation: normal bowel sounds Skin: General skin exam: normal color Neuro: Speech: normal speech Motor exam (neuro): 5/5 motor strength present throughout Extrem: General: normal to inspection Psych: Mental Status: mental status grossly normal Objective Data Vital Signs Vital Signs: Vital Signs - 24 hr 05/11/24 18:00 05/11/24 16:00 05/11/24 16:00 Temperature 98.2 F Pulse Rate 65 76 Respiratory Rate 16 Blood Pressure 155/89 H Pulse Oximetry 100 Oxygen Delivery Room Air 05/11/24 20:00 05/11/24 20:00 05/11/24 22:00 Temperature 98.3 F Pulse Rate 89 63 80 Respiratory Rate 9 L Blood Pressure 150/81 H Pulse Oximetry 100 Oxygen Delivery 05/12/24 00:00 05/12/24 00:00 05/12/24 02:00 Temperature 97.6 F Pulse Rate 74 71 76 Respiratory Rate 13 Blood Pressure 140/89 Pulse Oximetry 100 Oxygen Delivery 05/12/24 04:00 05/12/24 04:00 05/12/24 06:00 Temperature 97.6 F Pulse Rate 87 75 81 Respiratory Rate 12 Blood Pressure 138/74 Pulse Oximetry 100 Oxygen Delivery 05/12/24 08:00 05/12/24 08:00 05/12/24 08:00 Temperature 97.9 F Pulse Rate 72 74 Respiratory Rate 15 Blood Pressure 145/70 H Pulse Oximetry 100 Oxygen Delivery Room Air 05/12/24 10:00 Temperature Pulse Rate 67 Respiratory Rate Blood Pressure Pulse Oximetry Oxygen Delivery Intake/Output Intake/Output: Intake & Output 05/09/24 05/10/24 05/11/24 05/12/24 23:59 23:59 23:59 23:59 Intake Total 350 1667.9 640 Output Total 2850 Balance 350 -1182.1 640 Meds/Results Medications: Active Medications Generic Name Dose Route Start Last Admin Trade Name Freq PRN Reason Stop Dose Admin Acetaminophen 650 mg 05/10/24 23:08 05/10/24 23:31 Acetaminophen 325 Mg Tablet PO 650 mg Q6H PRN Administration Pain or Fever Hydrocortisone Acetate 25 mg 05/11/24 09:00 05/12/24 08:31 Hydrocortisone Acetate 25 Mg Suppository RECTAL Not Given PARK
--- NOTE | 2024-05-14 18:34 | PDONCCN ---
HPI - Date of Consult Date/Time: 05/14/24 18:34 Requesting Physician: Tirso Wiggins MD Primary Care Provider: Jose Bowen MD - Consult Narrative Reason for consult: Pancytopenia Narrative: Perico Winston Jr. is a 78 year old male with history of chronic kidney disease, GERD, hypertension, seizure disorder and obstructive sleep apnea on CPAP machine came into the hospital with lightheadedness and dizziness and palpitation along with shortness of breath and. Workup showed hemoglobin of 6.7. WBC was 3.[id number] abdomen and pelvis was done on May 10 that showed liver cirrhosis along with thickening of the wall of the stomach and thickening of the wall of the rectosigmoid area indicating colitis. Denies any other new complaints. 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 Prostate cancer Radiation proctitis Seizure disorder With history tonic clonic seizures Spondylosis without myelopathy or radiculopathy, cervical region Surgical History: Surgical History (Last Reviewed 05/11/24 @ 09:17 by Dexter Montgomery MD) Cleft lip and palate History of colonoscopy with polypectomy Onset Date: 08/2021 History of prostate biopsy Family History: Family History (Last Reviewed 05/11/24 @ 09:17 by Dexter Montgomery MD) Father Family history of cardiovascular disease, Onset Age: 70 Mother Carcinoma of colon, Onset Age: 56 - Social History Social History: Social History (Last Reviewed 05/11/24 @ 09:17 by Dexter Montgomery MD) Alcohol Use: Alcohol intake: former Substance Use: Substance use: never Substance use type: does not use Others: Spiritual care concerns: No Living Arrangements: Living arrangements: with family Smoking Status: Smoking status: Never smoker Social Determinants of Health: Do You Feel Safe in your Home?: Yes Has the Lack of Transportation Kept You From Medical Appointments or From Getting Medications?: No Within the Past 12 Months, Were You Worried Whether Your Food Would Run Out Before You Got Money to Buy More?: Never True What is Your Housing Situation Today?: I Have Housing Are You Worried That in the Next 2 Months, You May Not Have Your Own Housing to Live In?: No Do You Have Trouble Paying Your Heating Or Electricity Bill?: No Do You Have Trouble Paying For Medicines?: No Are You Currently Unemployed and Looking for Work?: No Highest Level of Education Completed: High School Diploma/GED Do You Have Trouble With Childcare or the Care of a Family Member?: No Exam - Exam HEENT: EOMI, PERRLA, mucous membranes moist and pink Neck: supple Lungs: clear to auscultation, normal air movement Heart: no murmurs, gallops, or rubs, regular rhythm Abdomen: abdomen soft, non-distended, normal bowel sounds Extremities: normal pulses Integumentary: no abnormalities Neurological: normal speech Psychological: mental status NL, mood NL - Lab Results Laboratory Last Values WBC 4.1 K/mm3 (4.5-10.0) L 05/12/24 03:54 RBC 2.70 M/mm3 (4.6-6.20) L 05/12/24 03:54 Hgb 7.7 g/dL (14.0-18.0) L 05/12/24 13:08 Hct 24.4 % (42.0-52.0) L 05/12/24 13:08 MCV 89.6 fl (80-100) 05/12/24 03:54 MCH 27.4 pg (26-34) 05/12/24 03:54 MCHC 30.6 g/dl (32-36) L
== END 2024-05-12 15:43 | disposition home or self-care (01) ==
LOC: ANHED 19:16 → ANHICU 22:28
PROVIDERS: Internal Medicine Gastroenterology; Registered Nurse; Admitting Provider Internal Medicine; Emergency Provider Emergency Medicine; PCP Emergency Medicine; Visit Provider Internal Medicine
PROC: 0DJD8ZZ Inspection of Lower Intestinal Tract, Via Natural or Artificial Opening Endoscopic (ICD-10-PCS; CPT 45378; principal; 2024-05-11 15:00)
DX: K55.21 Angiodysplasia of colon with hemorrhage (principal); K62.7 Radiation proctitis; D61.818 Other pancytopenia; D64.9 Anemia, unspecified; R79.89 Other specified abnormal findings of blood chemistry; R93.3 Abnormal findings on diagnostic imaging of other parts of digestive tract; K75.81 Nonalcoholic steatohepatitis (NASH); I12.9 Hypertensive chronic kidney disease with stage 1 through stage 4 chronic kidney disease, or unspecified chronic kidney disease; N18.30 Chronic kidney disease, stage 3 unspecified; K21.9 Gastro-esophageal reflux disease without esophagitis; E78.2 Mixed hyperlipidemia; F33.1 Major depressive disorder, recurrent, moderate; G40.909 Epilepsy, unspecified, not intractable, without status epilepticus; G47.33 Obstructive sleep apnea (adult) (pediatric); M19.012 Primary osteoarthritis, left shoulder; M19.011 Primary osteoarthritis, right shoulder; Z85.46 Personal history of malignant neoplasm of prostate; Z86.010 Personal history of colon polyps; Z80.0 Family history of malignant neoplasm of digestive organs; Z79.1 Long term (current) use of non-steroidal anti-inflammatories (NSAID)
CPT/HCPCS: 45382; 36415; 36430; 74177; 80053; 81003; 83615; 83690; 83735; 84439; 84443; 84480; 84484; 85014; 85018; 85025; 85027; 85046; 85610; 85730; 86850; 86900; 86901; 86923; 93005; 96360; 96361; 99285; A9270; G0378; J1756; J2704; J7030; J7050; J7120; P9016; Q9967

== ENCOUNTER 2024-05-28 15:37 | Outpatient (CLI) | payer OTHER, SELFPAY ==
[2024-05-28 15:52] LABS: Hematocrit 34.2 % (42.0-52.0); Hemoglobin 10.9 g/dL (14.0-18.0); Mean Corpuscular HGB Conc 31.9 g/dl (32-36); Mean Corpuscular Hemoglobin 27.7 pg (26-34); Mean Platelet Volume 9.2 fl (7.4-10.4); Platelet Count Result 227 k/mm3 (150-375); Red Blood Count 3.93 M/mm3 (4.6-6.20); Red Cell Distribution Width 16.3 % (11.5-14.5)
[2024-05-28 16:43] LABS: Iron 66 ug/dL (49-181)
[2024-05-28 16:46] LABS: Alanine Aminotransferase 15 U/L (6-50); Albumin Level 4.7 g/dL (3.5-5.1); Alkaline Phosphatase 101 U/L (38-126); Anion Gap 12 mmol/L (4-12); Aspartate Amino Transferase 32 U/L (17-59); Bilirubin,Total 0.5 mg/dL (0.2-1.3); Blood Urea Nitrogen 17 mg/dL (9-20); Calcium 9.9 mg/dL (8.4-10.2); Carbon Dioxide 24 mmol/L (22-30); Chloride 94 mmol/L (98-107); Estimated Glomerular Filt Rate 59; Glucose 105 mg/dL (65-110); Potassium 4.5 mmol/L (3.4-5.0); Sodium 130 mmol/L (137-145)
[2024-05-28 16:53] LABS: Percent Iron Saturation 17 % (20-50)
== END 2024-05-28 15:38 | disposition home or self-care (01) ==
LOC: ANHLAB 15:39
PROVIDERS: PCP Emergency Medicine; Visit Provider Internal Medicine Hematology & Oncology
DX: D64.9 Anemia, unspecified (principal)
CPT/HCPCS: 36415; 80053; 82607; 82728; 83540; 83550; 85027

== ENCOUNTER 2024-06-21 00:23 | Day surgery (SDC) | payer OTHER, SELFPAY ==
[2024-06-08 14:47] VITALS: BMI 23.0
[2024-06-21 11:18] VITALS: BP 107/83; PULSE 102; RESP 18; TEMP 37.1; O2SAT 98
--- NOTE | 2024-06-21 11:23 | WPDANESEPPF ---
Anes - Initial Pre Proc Eval Procedure: Operation Date: 06/21/24 13:30 Proposed Procedures p Esophagogastroduodenoscopy - Garrick Tinoco MD Date/Time: 06/21/24 11:23 Surgeon: Garrick Tinoco MD Pre Op Diagnosis: PALMER, Cirrhosis,abnormal Imaging Patient Data Age: 78 Gender: M Height: 1.83 m Weight: 75.3 kg Last Vital Signs Temp 37.1 C 06/21/24 11:18 Pulse 102 H 06/21/24 11:18 Resp 18 06/21/24 11:18 BP 107/83 06/21/24 11:18 Pulse Ox 98 06/21/24 11:18 O2 Del Method Room Air 06/21/24 11:18 Allergies Allergy/AdvReac Type Severity Reaction Status Date / Time No Known Allergies Allergy Verified 06/21/24 11:16 Home Medications Medication Instructions Recorded Confirmed Type tamsulosin 0.4 mg capsule 0.4 mg PO HS 05/03/23 06/21/24 History relugolix 120 mg tablet (Orgovyx) 120 mg PO 1600 06/01/23 06/21/24 History levetiracetam 500 mg tablet 500 mg PO BID 03/11/24 06/21/24 History losartan 50 mg-hydrochlorothiazide 1 tablet PO QNOON 03/11/24 06/21/24 History 12.5 mg tablet misoprostol 200 mcg tablet 200 mcg PO BID 03/11/24 06/21/24 History omeprazole 40 mg capsule,delayed 40 mg PO DAILY 05/10/24 06/21/24 History release sertraline 50 mg tablet 100 mg PO QNOON #60 tabs 05/12/24 06/21/24 Rx hydrocortisone acetate 25 mg 25 mg RECTAL DAILY PRN Hemorrhoids 06/08/24 06/21/24 History rectal suppository (Anusol-HC) Patient hx anesthesia problems: none Family hx anesthesia problems: none Results Review: All pre-operative results and documents have been reviewed as part of the pre-operative evaluation. 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 He smoked briefly when he was a young man. He drinks alcohol on occasion but only in moderation. He used to drink a little bit heavier than he does now but he was still drink an alcoholic beverage about once a month. He denies any illicit substance history. Code status: Full code Surrogate decision maker: Lo Winston () Smoking status: Never smoker Alcohol intake: former Substance use: never Substance use type: does not use Do You Feel Safe in your Home?: Yes Lack of Transportation: No Lack of Food: Never True Current Housing: I Have Housing Concerned About Future Housing: No Difficulty Paying Gas/Electric Bills: No Difficulty Paying for Meds: No Currently Unemployed: No Education: High School Diploma/GED Difficulty w/ Childcare or Family Care: No Living arrangements: with family Spiritual care concerns: No Anes - Eval Final PreProcedure Day of Procedure 06/21/24 11:23 Patient weight: normal Heart: regular rate and rhythm Lungs: clear to auscultation Airway: Mallampati scale (cleft palate) Neurological: alert and oriented Last oral intake: >/= 8 hours ASA classification: IV Emergent: no Anesthetic plan: proceed Anesthesia type and monitoring: general GIVS Results Review: All pre-operative results and documents have been reviewed as part of the pre-operative evaluation. Informed Consent: The patient's anesthetic plan and its attendant risks and benefits were discussed with the patient/family/POA. Questions were solicited and answers provided to the satisfaction of the patient/family/POA.
[2024-06-21] MEDS: LACTATED RINGERS 1,000 ML 150 ML IV CONT (11:27)
--- NOTE | 2024-06-21 11:33 | PM.HPGS ---
History of Present Illness History of Present Illness Consent: Risks, benefits, and alternatives have been discussed and questions answered. Patient agrees to proceed with procedure. Chief complaint: PALMER, Cirrhosis,abnormal Imaging Narrative: Perico Winston Jr. 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 CT scan also revealed some wall thickening of stomach. Here for EGD. 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 He smoked briefly when he was a young man. He drinks alcohol on occasion but only in moderation. He used to drink a little bit heavier than he does now but he was still drink an alcoholic beverage about once a month. He denies any illicit substance history. Code status: Full code Surrogate decision maker: Lo Winston () Smoking status: Never smoker Alcohol intake: former Substance use: never Substance use type: does not use Do You Feel Safe in your Home?: Yes Lack of Transportation: No Lack of Food: Never True Current Housing: I Have Housing Concerned About Future Housing: No Difficulty Paying Gas/Electric Bills: No Difficulty Paying for Meds: No Currently Unemployed: No Education: High School Diploma/GED Difficulty w/ Childcare or Family Care: No Living arrangements: with family Spiritual care concerns: No Meds Home Medications and Allergies Home Medications Medication Instructions Recorded Confirmed Type tamsulosin 0.4 mg capsule 0.4 mg PO HS 05/03/23 06/21/24 History relugolix 120 mg tablet (Orgovyx) 120 mg PO 1600 06/01/23 06/21/24 History levetiracetam 500 mg tablet 500 mg PO BID 03/11/24 06/21/24 History losartan 50 mg-hydrochlorothiazide 1 tablet PO QNOON 03/11/24 06/21/24 History 12.5 mg tablet misoprostol 200 mcg tablet 200 mcg PO BID 03/11/24 06/21/24 History omeprazole 40 mg capsule,delayed 40 mg PO DAILY 05/10/24 06/21/24 History release sertraline 50 mg tablet 100 mg PO QNOON #60 tabs 05/12/24 06/21/24 Rx hydrocortisone acetate 25 mg 25 mg RECTAL DAILY PRN Hemorrhoids 06/08/24 06/21/24 History rectal suppository (Anusol-HC) Allergies Allergy/AdvReac Type Severity Reaction Status Date / Time No Known Allergies Allergy Verified 06/21/24 11:16 Vital Signs Vital Signs - 24 hr 06/21/24 11:18 Temperature 98.7 F Pulse Rate 102 H Respiratory Rate 18 Blood Pressure 107/83 Pulse Oximetry 98 Oxygen Delivery Room Air Exam Const: General: comfortable and no acute distress HENMT: Face/Nose/Sinus: Normal nares present Eyes: General: appearance normal, both eyes and all related structures Neck: Neck: no JVD Resp: Auscultation: clear to auscultation bilaterally Cardio: Rate: regular rate Rhythm: regular rhythm GI: Inspection: non-distended GI Palp: Yes Soft to palpation Skin: General skin exam: normal color Neuro: General: gait normal Speech: normal speech Extrem: General: normal to inspection Psych: Mental Status: mental status grossly normal Assessment and Plan Assessment and plan (1) Cirrhosis: Code(s): K74.60 - Unspecified cirrhosis of liver Status: Acute Assessment and Plan: egd to assess if portal htn (2) LEDY (iron deficiency anemia): Qualifiers: Iron deficiency anemia type: unspecified iron deficiency Qualified Code(s): D50.9 - Iron deficiency anemia, unspecified Code(s): D50.9 - Iron deficiency anemia, unspecified Status: Acute (3) Abnormal CT scan, stomach: Code(s): R93.3 - Abnormal findings on diagnostic imaging of other parts of digestive tract Status: Acute
[2024-06-21 11:41] VITALS: BP 106/54; PULSE 74; RESP 20; O2SAT 100
[2024-06-21 11:51] VITALS: BP 105/57; PULSE 76; RESP 20; O2SAT 100
[2024-06-21 12:01] VITALS: BP 113/58; PULSE 70; RESP 20; O2SAT 100
== END 2024-06-21 12:19 | disposition home or self-care (01) ==
PROVIDERS: PCP Emergency Medicine; Referring Provider Internal Medicine Gastroenterology; Visit Provider Internal Medicine Gastroenterology
PROC: 0DJ08ZZ Inspection of Upper Intestinal Tract, Via Natural or Artificial Opening Endoscopic (ICD-10-PCS; CPT 43235; principal; 2024-06-21 13:30)
DX: R93.3 Abnormal findings on diagnostic imaging of other parts of digestive tract (principal); K29.50 Unspecified chronic gastritis without bleeding; K74.60 Unspecified cirrhosis of liver; K75.81 Nonalcoholic steatohepatitis (NASH); D50.9 Iron deficiency anemia, unspecified; I12.9 Hypertensive chronic kidney disease with stage 1 through stage 4 chronic kidney disease, or unspecified chronic kidney disease; N18.30 Chronic kidney disease, stage 3 unspecified; E78.2 Mixed hyperlipidemia; F33.9 Major depressive disorder, recurrent, unspecified; M19.012 Primary osteoarthritis, left shoulder; M19.011 Primary osteoarthritis, right shoulder; M47.812 Spondylosis without myelopathy or radiculopathy, cervical region; G40.409 Other generalized epilepsy and epileptic syndromes, not intractable, without status epilepticus; Z98.890 Other specified postprocedural states; K62.7 Radiation proctitis; Z87.891 Personal history of nicotine dependence; Z85.46 Personal history of malignant neoplasm of prostate; Z80.0 Family history of malignant neoplasm of digestive organs; Z82.49 Family history of ischemic heart disease and other diseases of the circulatory system
CPT/HCPCS: 43239; 88305; J2704; J7120

== ENCOUNTER 2024-10-12 10:28 | Outpatient (CLI) | payer OTHER, SELFPAY ==
[2024-10-12 10:44] LABS: Basophils Percent Auto 0.6 % (0.2-1.2); Eosinophils Absolute Auto 0.2 K/mm3 (0-0.3); Eosinophils Percent Auto 6.3 % (0-4.4); Hematocrit 31.2 % (42.0-52.0); Hemoglobin 10.1 g/dL (14.0-18.0); Immature Granulocyte Absolute 0.01 K/mm3 (0.00-0.031); Immature Granulocyte Percent A 0.3 % (0-0.5); Lymphocytes Absolute Auto 0.44 K/mm3 (0.9-3.2); Lymphocytes Percent Auto 13.9 % (18.3-44.2); Mean Corpuscular HGB Conc 32.4 g/dl (32-36); Mean Corpuscular Hemoglobin 30.3 pg (26-34); Mean Corpuscular Volume 93.7 fl (80-100); Mean Platelet Volume 9.3 fl (7.4-10.4); Monocytes Absolute Auto 0.3 K/mm3 (0.1-0.6); Monocytes Percent Auto 8.5 % (2.6-8.5); Neutrophils Absolute Auto 2.2 K/mm3 (1.3-6.7); Neutrophils Percent Auto 70.4 % (45.5-73.1); Platelet Count Result 121 k/mm3 (150-375); Red Blood Count 3.33 M/mm3 (4.6-6.20); Red Cell Distribution Width 14.7 % (11.5-14.5); White Blood Count 3.2 K/mm3 (4.5-10.0)
[2024-10-12 10:49] LABS: Blood Urea Nitrogen 16 mg/dL (8-26); Carbon Dioxide 26 mmol/L (22-30); Chloride 98 mmol/L (98-109); Estimated Glomerular Filt Rate 53; Glucose 90 mg/dL (70-105); Ionized Calcium (POC) 1.23 mmol/L (1.11-1.31); Potassium 4.8 mmol/L (3.5-4.9); Sodium 133 mmol/L (138-146)
--- OUTSIDE RECORDS SUMMARY | 2024-10-12 11:02 | XMS_ITS | Encounter Summary ---
Author Organization [facility] AMINATA Hammonds [facility] Address [address] [place] [address] Care Team Providers Care Convention Services Director Name Role Phone Unavailable Primary Care Provider Unavailabl e Reason for Visit * Eval and Treat (Routine) - Authorized Specialty Diagnoses / Procedures Referred By Contac t Referred To Contact Hematology and Oncology Diagnoses Other pancytopenia (CMS/HCC) Procedures office level 3-5 Jose Bowen MD [address] [place] [address] Phone: tel: fax: [facility] Oncology and Hematology - [place] [address] [place] [address] Phone: tel: fax: Referral ID Status Reason Start Date Expiration Date V isits Requested Visits Authorized [id number] Authorized 05/04/2024 05/04/2025 12 12 Encounter Details Date Type Department Care Team (Late st Contact Info) Description 10/12/2024 10:30 AM LOSS CONTROL CONSULTANT Office Visit [facility] Oncology and Hematology - [place] [address] [place] [address] Dallas Kwong MD [address] [facility] [address] [place] [address] Arrived Social History Tobacco Use Types Packs/Day Years Used Date Smoking Tobacco: Never Tobacco Cessation:Counseling Given: Not Answered Alcohol Use Standard Drinks/Week Comments Never 0 (1 standard drink = 0.6 oz pur e alcohol) Sex and Gender Information Value Date Recorded Sex Assigned at Not on file Legal Sex Male 9:43 AM CDT Gender Identity Not on file Sexual Orientation Not on file documented as of this encounter Last Filed Vital Signs Vital Sign Reading Time Taken Comments Blood Pressure 109/64 10/12/2024 10:49 AM LOSS CONTROL CONSULTANT Pulse 87 10/12/2024 10:49 AM LOSS CONTROL CONSULTANT Temperature 36.7 C (98.1 F) 10/12/2024 10:49 AM LOSS CONTROL CONSULTANT Respiratory Rate 15 10/12/2024 10:49 AM LOSS CONTROL CONSULTANT Oxygen Saturation 95% 10/12/2024 10:49 AM LOSS CONTROL CONSULTANT Inhaled Oxygen Concentration - - Weight 80.5 kg (177 lb 6.4 oz) 10/12/2024 10:49 AM LOSS CONTROL CONSULTANT Height - - Body Mass Index 24.06 05/28/2024 3:06 PM CDT documented in this encounter Plan of Treatment Not on file documented as of this encounter Visit Diagnoses Not on filedocumented in this encounter
--- OUTSIDE RECORDS SUMMARY | 2024-10-12 11:02 | XMS_ITS | Clinical Summary ---
Author Organization [facility] (Formerly [facility])[3] [address] Address [address] [place] [address] Care Team Providers Care Rework Operator Name Role Phone Unavailable Primary Care Provider Unavailabl e Allergies No known active allergies Medications levetiracetam (KEPPRA ORAL) Take by mouth. Active OMEPRAZOLE ORAL Take by mouth. Active losartan potassium (LOSARTAN ORAL) Take by mouth. Active MISOPROSTOL ORAL Take by mouth. Active sertraline HCl (SERTRALINE ORAL) Take by mouth. Active tamsulosin (FLOMAX) 0.4 mg capsule Take 0.4 mg by mouth daily. Active Active Problems No known active problems Encounters Date Type Department Care Team Description 10/12/2024 10:30 AM HAIR SAMPLE MATCHER Office Visit [facility] ([facility]3] Oncology and Hematology - [place] [address] [place] [phone] Dallas Kwong MD Arrived 10/10/2024 External Device Data STL ABSTRACTION Provider, Abstract 09/13/2024 Telephone [facility] ([facility]3] Oncology and Hematology [place] [address] [place] [id number] Dallas Kwong MD Lab Results 09/12/2024 External Device Data STL ABSTRACTION Provider, Abstract 09/12/2024 External Device Data STL ABSTRACTION Provider, Abstract from Last 3 Months Family History Medical History Relation Name Comments No Known Problems Brother Diabetes Child 1 Diabetes Child 2 No Known Problems Child 3 No Known Problems Child 4 No Known Problems Child 5 Heart Disease Father Colon Cancer Mother Relation Name Status Comments Brother Alive Child 1 Alive Child 2 Alive Child 3 Alive Child 4 Alive Child 5 Alive Father Mother Social History Tobacco Use Types Packs/Day Years Used Date Smoking Tobacco: Never Tobacco Cessation:Counseling Given: Not Answered Alcohol Use Standard Drinks/Week Comments Never 0 (1 standard drink = 0.6 oz pur e alcohol) Sex and Gender Information Value Date Recorded Sex Assigned at Not on file Legal Sex Male 9:43 AM CDT Gender Identity Not on file Sexual Orientation Not on file Last Filed Vital Signs Vital Sign Reading Time Taken Comments Blood Pressure 109/64 10/12/2024 10:49 AM HAIR SAMPLE MATCHER Pulse 87 10/12/2024 10:49 AM HAIR SAMPLE MATCHER Temperature 36.7 C (98.1 F) 10/12/2024 10:49 AM HAIR SAMPLE MATCHER Respiratory Rate 15 10/12/2024 10:49 AM HAIR SAMPLE MATCHER Oxygen Saturation 95% 10/12/2024 10:49 AM HAIR SAMPLE MATCHER Inhaled Oxygen Concentration - - Weight 80.5 kg (177 lb 6.4 oz) 10/12/2024 10:49 AM HAIR SAMPLE MATCHER Height 182.9 cm (6') 05/28/2024 3:06 PM CDT Body Mass Index 24.06 05/28/2024 3:06 PM CDT Plan of Treatment Health Maintenance Due Date Last Done Comments DTAP/TDAP/TD VACCINES (1 - Tdap) 1965 PNEUMOCOCCAL VACCINE 65+ YEARS (1 of 1 - PCV) 07/23/19 96 ZOSTER VACCINE (1 of 2) 1996 RSV VACCINE (60+ or ) (1 - 1-dose 75+ series) 2021 INFLUENZA VACCINE (#1) 2024 [place] Prev entative Visit/Annual Wellness Visit 08/22/2024 Procedures Procedure Name Priority Date/Time Associated Diagnosis Comments VITAMIN B12 AND FOLATE Routine 10/11/2024 1:11 PM HAIR SAMPLE MATCHER Chronic anemia IRON, TIBC, AND PERCENT SATURATION Routine 10/11/2024 1:11 PM HAIR SAMPLE MATCHER Chronic anemia FERRITIN Routine 10/11/2024 1:11 PM HAIR SAMPLE MATCHER Chronic anemia from Last 3 Months Results * VITAMIN B12 AND FOLATE (10/11/2024 1:11 PM HAIR SAMPLE MATCHER) VITAMIN B12 549 200 - 1100 pg/mL [facility] FOLATE, SERUM >24.0 ng/mL [facility] Comment: Reference Range Low: <3.4 Borderline: 3.4-5.4 Normal: >5.4 Test Performed at: [facility] [address] [place] [address] Olaf Bose MD Blood 10/11/2024 1:11 PM HAIR SAMPLE MATCHER 10/11/2024 1:11 PM HAIR SAMPLE MATCHER Dallas Kwong MD CHEMISTRY ORDERABLES Final Resu lt Performing Organization Address [facility] de Phone Number [facility] [phone] [facility] [address] [place] [address] [place] [address] * (ABNORMAL) IRON, TIBC, AND PERCENT SATURATION (10/11/2024 1:11 PM HAIR SAMPLE MATCHER) IRON 53 50 - 180 mcg/dL [facility] TIBC 332 250 - 425 mcg/dL (calc) [facility] IRON % SATURATION 16(L) 20 - 48 % (calc) [facility] Comment: Test Performed at: [facility] [place] [address] Olaf Bose MD Blood 10/11/2024 1:11 PM HAIR SAMPLE MATCHER 10/11/2024 1:11 PM HAIR SAMPLE MATCHER us Dallas Kwong MD CHEMISTRY ORDERABLES Final Resu lt Performing Organization Address [facility] Co de Phone Number [facility] [phone] [facility] [address] [facility] [place] [address] * FERRITIN (10/11/2024 1:11 PM HAIR SAMPLE MATCHER) FERRITIN 34 24 - 380 ng/mL [facility] Comment: Test Performed at: [facility] [address] [address] [place] [address] Olaf Bose MD Blood 10/11/2024 1:11 PM HAIR SAMPLE MATCHER 10/11/2024 1:11 PM HAIR SAMPLE MATCHER Dallas Kwong MD CHEMISTRY ORDERABLES Final Resu lt [facility] [phone] [facility] [address] [place] [phone] from Last 3 Months Insurance [facility]
--- OUTSIDE RECORDS SUMMARY | 2024-10-12 11:02 | XMS_ITS | Encounter Summary ---
Author Organization [facility] Address [address] [place] [address] Care Team Providers Care Health Administration Teacher Name Role Phone Unavailable Primary Care Provider Unavailabl e Encounter Details Date Type Department Care Team (Late st Contact Info) Description 10/10/2024 External Device Data STL ABSTRACTION Provider, Abstract NO ADDRESS ON FILE Social History Tobacco Use Types Packs/Day Years Used Date Smoking Tobacco: Never Alcohol Use Standard Drinks/Week Comments Never 0 (1 standard drink = 0.6 oz pur e alcohol) Sex and Gender Information Value Date Recorded Sex Assigned at Not on file Legal Sex Male 9:43 AM CDT Gender Identity Not on file Sexual Orientation Not on file documented as of this encounter Plan of Treatment Not on file documented as of this encounter Visit Diagnoses Not on filedocumented in this encounter
== END 2024-10-12 10:29 | disposition home or self-care (01) ==
LOC: ANHLAB 10:29
PROVIDERS: PCP Emergency Medicine; Visit Provider Internal Medicine Hematology & Oncology
DX: D64.9 Anemia, unspecified (principal)
CPT/HCPCS: 36415; 80047; 85025

== ENCOUNTER 2024-11-13 00:19 | Day surgery (SDC) | payer OTHER, SELFPAY ==
[2024-10-15 13:51] VITALS: BMI 24.2
[2024-11-01 15:37] VITALS: BMI 24.2
--- OUTSIDE RECORDS SUMMARY | 2024-11-13 00:21 | XMS_ITS | Clinical Summary ---
Author Organization [facility] [address] [facility] Address [address] [place] [address] Care Team Providers Care Aeronautics Commission Director Name Role Phone Unavailable Primary Care [...] Encounters Date Type Department Care Team Description 11/07/2024 External Device Data STL ABSTRACTION Provider, Abstract 10/27/2024 External Device Data STL ABSTRACTION Provider, Abstract 10/26/2024 External Device Data STL ABSTRACTION Provider, Abstract 10/12/2024 10:30 AM BACKEND TESTER Office Visit [facility] Oncology [facility] Hematology [facility] [address] [place] [phone] Dallas Kwong MD Chronic anemia (Primary Dx) 10/12/2024 Orders Only [facility] Oncology [place] [address] [place] [phone] Dallas Kwong MD 10/10/2024 External Device Data STL ABSTRACTION Provider, Abstract 09/13/2024 Telephone [facility] Oncology [facility] [address] [place] [address] Dallas Kwong MD Lab Results 09/12/2024 External [...] Comments Blood Pressure 109/64 10/12/2024 10:49 AM BACKEND TESTER Pulse 87 10/12/2024 10:49 AM BACKEND TESTER Temperature 36.7 C (98.1 F) 10/12/2024 10:49 AM BACKEND TESTER Respiratory Rate 15 10/12/2024 10:49 AM BACKEND TESTER Oxygen Saturation 95% 10/12/2024 10:49 AM BACKEND TESTER Inhaled Oxygen Concentration - - Weight 80.5 kg (177 lb 6.4 oz) 10/12/2024 10:49 AM BACKEND TESTER Height 182.9 cm (6') 05/28/2024 3:06 PM CDT Body Mass Index 24.06 05/28/2024 3:06 PM CDT Plan of Treatment Upcoming Encounters Date Type Department Care Team (Late st Contact Info) Description 04/11/2025 1:00 PM CDT Office Visit [facility] Oncology and Hematology - [place] [address] [facility] [address] [place] [address] Dallas Kwong MD [address] [facility] [address] [place] [address] Health Maintenance Due Date Last Done Comments DTAP/TDAP/TD VACCINES (1 - Tdap) 1965 PNEUMOCOCCAL VACCINE 50+ YEARS (1 of 1 - PCV) 07/23/19 96 ZOSTER VACCINE (1 of 2) 1996 RSV VACCINE (60+ or ) (1 - 1-dose 75+ series) 2021 INFLUENZA VACCINE (#1) 2024 [place] ([place]) Prev entative Visit/Annual Wellness Visit 08/22/2024 Procedures Procedure Name Priority Date/Time Associated Diagnosis Comments BASIC METABOLIC PANEL Routine 10/12/2024 12:14 PM BACKEND TESTER CBC WITH AUTODIFFERENTIAL Routine 10/12/2024 12:11 PM BACKEND TESTER VITAMIN B12 AND FOLATE Routine 1:11 PM BACKEND TESTER Chronic anemia IRON, TIBC, AND PERCENT SATURATION Routine 10/11/2024 1:11 PM BACKEND TESTER Chronic anemia FERRITIN Routine 10/11/2024 1:11 PM BACKEND TESTER Chronic anemia from Last 3 Months Results * BASIC METABOLIC PANEL (10/12/2024 12:14 PM BACKEND TESTER) Blood us Dallas Kwong MD CHEMISTRY ORDERABLES Final Resu lt * CBC WITH AUTODIFFERENTIAL (10/12/2024 12:11 PM BACKEND TESTER) Blood us Dallas Kwong MD HEMATOLOGY ORDERABLES Final Res ult * VITAMIN B12 AND FOLATE (10/11/2024 1:11 PM BACKEND TESTER) VITAMIN B12 549 200 - 1100 pg/mL [facility] FOLATE, SERUM >24.0 ng/mL [facility] Comment: Reference Range Low: <3.4 Borderline: 3.4-5.4 Normal: >5.4 Test Performed at: [facility] [address] [address] [place] [address] Olaf Bose MD Blood 10/11/2024 1:11 PM BACKEND TESTER 10/11/2024 1:11 PM BACKEND TESTER us Dallas Kwong MD CHEMISTRY ORDERABLES Final Resu lt Performing Organization Address City/[facility] Co de Phone Number [facility] [phone] [facility] [address] [place] [address] * (ABNORMAL) IRON, TIBC, AND PERCENT SATURATION (10/11/2024 1:11 PM BACKEND TESTER) IRON 53 50 - 180 mcg/dL [facility] TIBC 332 250 - 425 mcg/dL (calc) [facility] IRON % SATURATION 16(L) 20 - 48 % (calc) [facility] Comment: Test Performed at: [facility] [address] [place] [address] Olaf Bose MD Blood 10/11/2024 1:11 PM BACKEND TESTER 10/11/2024 1:11 PM BACKEND TESTER us Dallas Kwong MD CHEMISTRY ORDERABLES Final Resu lt Performing Organization Address [facility] Co de Phone Number [facility] [phone] [facility] [id number] [place] [address] * FERRITIN (10/11/2024 1:11 PM BACKEND TESTER) Pathologist [facility] FERRITIN 34 24 - 380 ng/mL [facility] Comment: Test Performed at: [facility] [address] [place] [address] Olaf Bose MD Blood 10/11/2024 1:11 PM BACKEND TESTER 10/11/2024 1:11 PM BACKEND TESTER Dallas Kwong MD CHEMISTRY ORDERABLES Final Resu lt Performing Organization Address [facility] Co de Phone Number [facility] [phone] [facility] [address] [place] [address] from Last 3 Months [facility]
[2024-11-13 10:49] VITALS: BP 93/61; PULSE 92; RESP 18; TEMP 36.1; O2SAT 100; BMI 24.0
[2024-11-13] MEDS: LACTATED RINGERS 1,000 ML 150 ML IV CONT (11:00)
--- NOTE | 2024-11-13 11:53 | WPDANESEPPF ---
Anes - Initial Pre Proc Eval Procedure: Operation Date: 11/13/24 12:00 Proposed Procedures p Flexible Sigmoidoscopy - Garrick Tinoco MD Date/Time: 11/13/24 11:53 Surgeon: Garrick Tinoco MD Pre Op Diagnosis: hemmorrhage of anus and rectum Patient Data Age: 79 Gender: M Height: 1.83 m Weight: 80.2 kg Last Vital Signs Temp 36.1 C L 11/13/24 10:49 Pulse 92 11/13/24 10:49 Resp 18 11/13/24 10:49 BP 93/61 L 11/13/24 10:49 Pulse Ox 100 11/13/24 10:49 O2 Del Method Room Air 11/13/24 10:49 Allergies Allergy/AdvReac Type Severity Reaction Status Date / Time No Known Allergies Allergy Verified 11/13/24 10:46 Home Medications ?Medication ?Instructions ?Recorded ?Confirmed ?Type tamsulosin 0.4 mg capsule 0.4 mg PO HS 05/03/23 11/13/24 History relugolix 120 mg tablet (Orgovyx) 120 mg PO 1600 06/01/23 11/13/24 History losartan 50 mg-hydrochlorothiazide 1 tablet PO QNOON 03/11/24 11/13/24 History 12.5 mg tablet misoprostol 200 mcg tablet 200 mcg PO BID 03/11/24 11/13/24 History omeprazole 40 mg capsule,delayed 40 mg PO DAILY 05/10/24 11/13/24 History release sertraline 50 mg tablet 100 mg (2 x 50 mg) PO QNOON #60 05/12/24 11/13/24 Rx tabs hydrocortisone acetate 25 mg 25 mg RECTAL DAILY PRN Hemorrhoids 06/08/24 11/01/24 History rectal suppository (Anusol-HC) levetiracetam 500 mg tablet See Rx Instructions .Route 11/05/24 11/13/24 Rx .COMPLEX #180 tabs Patient hx anesthesia problems: none Family hx anesthesia problems: none Results Review: All pre-operative results and documents have been reviewed as part of the pre-operative evaluation. 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 He smoked briefly when he was a young man. He drinks alcohol on occasion but only in moderation. He used to drink a little bit heavier than he does now but he was still drink an alcoholic beverage about once a month. He denies any illicit substance history. Code status: Full code Surrogate decision maker: Lo Winston () Smoking status: Never smoker Alcohol intake: never Substance use: never Substance use type: does not use Do You Feel Safe in your Home?: Yes Lack of Transportation: No Lack of Food: Never True Current Housing: I Have Housing Concerned About Future Housing: No Difficulty Paying Gas/Electric Bills: No Difficulty Paying for Meds: No Currently Unemployed: No Education: High School Diploma/GED Difficulty w/ Childcare or Family Care: No Living arrangements: with family Spiritual care concerns: No Anes - Eval Final PreProcedure Day of Procedure 11/13/24 11:53 Patient weight: normal Heart: regular rate and rhythm Lungs: clear to auscultation Airway: Mallampati scale class II Neurological: alert and oriented Last oral intake: >/= 8 hours ASA classification: IV Emergent: no Anesthetic plan: proceed Anesthesia type and monitoring: general GIVS and standard monitoring Results Review: All pre-operative results and documents have been reviewed as part of the pre-operative evaluation. Informed Consent: The patient's anesthetic plan and its attendant risks and benefits were discussed with the patient/family/POA. Questions were solicited and answers provided to the satisfaction of the patient/family/POA.
--- NOTE | 2024-11-13 12:08 | PM.HPGS ---
History of Present Illness History of Present Illness Consent: Risks, benefits, and alternatives have been discussed and questions answered. Patient agrees to proceed with procedure. Chief complaint: hemmorrhage of anus and rectum Narrative: Perico Winston Jr. is a 79 year old male here for sigmoidoscopy, h/o prostate cancer s/p radiation proctitis treated 02/2024 and then again 04/2024. 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 He smoked briefly when he was a young man. He drinks alcohol on occasion but only in moderation. He used to drink a little bit heavier than he does now but he was still drink an alcoholic beverage about once a month. He denies any illicit substance history. Code status: Full code Surrogate decision maker: Lo Winston () Smoking status: Never smoker Alcohol intake: never Substance use: never Substance use type: does not use Do You Feel Safe in your Home?: Yes Lack of Transportation: No Lack of Food: Never True Current Housing: I Have Housing Concerned About Future Housing: No Difficulty Paying Gas/Electric Bills: No Difficulty Paying for Meds: No Currently Unemployed: No Education: High School Diploma/GED Difficulty w/ Childcare or Family Care: No Living arrangements: with family Spiritual care concerns: No Meds Home Medications and Allergies Home Medications ?Medication ?Instructions ?Recorded ?Confirmed ?Type tamsulosin 0.4 mg capsule 0.4 mg PO HS 05/03/23 11/13/24 History relugolix 120 mg tablet (Orgovyx) 120 mg PO 1600 06/01/23 11/13/24 History losartan 50 mg-hydrochlorothiazide 1 tablet PO QNOON 03/11/24 11/13/24 History 12.5 mg tablet misoprostol 200 mcg tablet 200 mcg PO BID 03/11/24 11/13/24 History omeprazole 40 mg capsule,delayed 40 mg PO DAILY 05/10/24 11/13/24 History release sertraline 50 mg tablet 100 mg (2 x 50 mg) PO QNOON #60 05/12/24 11/13/24 Rx tabs hydrocortisone acetate 25 mg 25 mg RECTAL DAILY PRN Hemorrhoids 06/08/24 11/01/24 History rectal suppository (Anusol-HC) levetiracetam 500 mg tablet See Rx Instructions .Route 11/05/24 11/13/24 Rx .COMPLEX #180 tabs Allergies Allergy/AdvReac Type Severity Reaction Status Date / Time No Known Allergies Allergy Verified 11/13/24 10:46 Vital Signs Vital Signs - 24 hr 11/13/24 10:49 Temperature 97 F L Pulse Rate 92 Respiratory Rate 18 Blood Pressure 93/61 L Pulse Oximetry 100 Oxygen Delivery Room Air Exam Const: General: comfortable and no acute distress HENMT: Face/Nose/Sinus: Normal nares present Eyes: General: appearance normal, both eyes and all related structures Neck: Neck: no JVD Resp: Auscultation: clear to auscultation bilaterally Cardio: Rate: regular rate Rhythm: regular rhythm GI: Inspection: non-distended GI Palp: Yes Soft to palpation Skin: General skin exam: normal color Neuro: Speech: normal speech Extrem: General: normal to inspection Psych: Mental Status: mental status grossly normal Assessment and Plan Assessment and plan (1) Rectal bleeding: Code(s): K62.5 - Hemorrhage of anus and rectum Status: Acute Assessment and Plan: sigmoidoscopy, may need APC again (2) Radiation proctitis: Code(s): K62.7 - Radiation proctitis Status: Acute
[2024-11-13 12:21] VITALS: BP 98/51; PULSE 64; RESP 17; O2SAT 100
[2024-11-13 12:31] VITALS: BP 106/57; PULSE 66; RESP 19; O2SAT 100
[2024-11-13 12:41] VITALS: BP 113/60; PULSE 63; RESP 21; O2SAT 100
== END 2024-11-13 13:02 | disposition home or self-care (01) ==
PROVIDERS: PCP Emergency Medicine; Referring Provider Internal Medicine Gastroenterology; Visit Provider Internal Medicine Gastroenterology
PROC: 0DJD8ZZ Inspection of Lower Intestinal Tract, Via Natural or Artificial Opening Endoscopic (ICD-10-PCS; CPT 45330; principal; 2024-11-13 12:00)
DX: K62.7 Radiation proctitis (principal); K55.20 Angiodysplasia of colon without hemorrhage; K64.8 Other hemorrhoids; Z85.46 Personal history of malignant neoplasm of prostate
CPT/HCPCS: 45346; J2003; J2704; J7120

== ENCOUNTER 2025-05-13 12:53 | Outpatient (CLI) | payer OTHER, SELFPAY ==
--- NOTE | ~2025-05-13 | US_ITS ---
ULTRASOUND ABDOMEN LIMITED (RIGHT UPPER QUADRANT) Clinical History: K74.60 - Unspecified cirrhosis of liver Comparison: CT abdomen and pelvis 05/10/2024 Technique: Right upper quadrant sonography Findings: Liver: Nodular contour. Echogenic. No intrahepatic biliary ductal dilatation. Normal hepatopedal flow main portal vein. Common Duct: Normal caliber. 2 mm. Gallbladder: Slightly contracted. No stones. No wall thickening. No pericholecystic fluid. Possible tiny polyp. Pancreas: Largely obscured by bowel gas. Right kidney: Unremarkable. Retrohepatic IVC: Unremarkable. IMPRESSION: 1. No acute findings. 2. Cirrhosis. Reviewed, dictated and finalized at location R.
--- OUTSIDE RECORDS SUMMARY | 2025-05-13 13:22 | XMS_ITS | Clinical Summary ---
Author Organization [facility] [address] [facility] Address [address] [place] [address] Care Team Providers Care Tip Fixer Name Role Phone Unavailable Primary Care Provider [...] Encounters Date Type Department Care Team Description 05/07/2025 External Device Data [facility]STRA[facility] Provider, Abstract 05/07/2025 External Device Data [facility] Provider, Abstract 04/10/2025 External Device Data [facility] Provider, Abstract 04/09/2025 External Device Data [facility] Provider, Abstract 04/09/2025 Telephone [facility] - [place] [address] [facility] [address] [address] Dallas Kwong MD labs for appt 03/27/2025 External Device Data [facility] ABSTRACTION Provider, Abstract 03/26/2025 External Device Data [facility] Provider, Abstract 03/06/2025 External Device Data [facility]STRA[facility] Provider, Abstract 03/05/2025 External Device Data [facility] ABSTRACTION Provider, Abstract [...] Comments Blood Pressure 109/64 10/12/2024 10:49 AM H[facility] SORTER Pulse 87 10/12/2024 10:49 AM [facility] SORTER Temperature 36.7 C (98.1 F) 10/12/2024 10:49 AM [facility] SORTER Respiratory Rate 15 10/12/2024 10:49 AM [facility] SORTER Oxygen Saturation 95% 10/12/2024 10:49 AM H[facility] SORTER Inhaled Oxygen Concentration - - Weight 80.5 kg (177 lb 6.4 oz) 10/12/2024 10:49 AM H[facility] SORTER Height 182.9 cm (6') 05/28/2024 3:06 PM CDT Body Mass Index 24.06 05/28/2024 3:06 PM CDT Plan of Treatment Upcoming Encounters Date Type Department Care Team (Late st Contact Info) Description 06/07/2025 12:00 PM CDT Office Visit [facility] - [place] [address] [facility] [address] [phone] Dallas Kwong MD [address] [facility] [address] [place] [address] Health Maintenance Due Date Last Done Comments DTAP/TDAP/TD VACCINES (1 - Tdap) 1965 PNEUMOCOCCAL VACCINE 50+ YEARS (1 of 1 - PCV) 07/23/19 96 ZOSTER VACCINE (1 of 2) 1996 RSV VACCINE (60+ or ) (1 - 1-dose 75+ series) 2021 INFLUENZA VACCINE (#1) [address] [place] [address]
--- OUTSIDE RECORDS SUMMARY | 2025-05-13 13:22 | XMS_ITS | Clinical Summary ---
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 11/05/2024 Active miSOPROStol (CYTOTEC) 200 MCG tablet Take 1 tablet (200 mcg total) by mouth 2 (two) times daily. 01/31/2025 Active omeprazole (PRILOSEC) 40 MG capsule Take 1 capsule (40 mg total) by mouth daily. 02/01/2025 Active sertraline (ZOLOFT) 50 MG tablet 100 MG ORALLY EVERY DAY AT NOON TAKE 1 TABLET BY MOUTH EVERY DAY 05/25/2024 Active tamsulosin (FLOMAX) 0.4 MG Cap Take 1 capsule (0.4 mg total) by mouth nightly at bedtime. Active Ferrous Sulfate (IRON SUPPLEMENT OR) Take 130 mg by mouth. Active Encounters Date Type Department Care Team Description 04/23/2025 2:00 PM CDT Office Visit [facility] Family [facility] [place] [address], [address] [place] [address] Trev Puga MD Follow Up (Pt presents to office to discuss issues ) 04/23/2025 Travel 02/20/2025 Scan [facility] INFO SRVCS Scanned, [facility] EGD (SCAN) 02/18/2025 11:00 AM CDT Office Visit [facility] [address], [address] [place] [address] Trev Puga MD New Patient (Pt presents to office to establish care.) 02/18/2025 Scan [facility] INFO SRVCS Scanned, [facility] 02/18/2025 Travel 02/11/2025 Scan [facility] INFO SRVCS Scanned, [facility] from Last 3 Months Immunizations Immunization Administration Dates Next Due Arexvy Respiratory Syncytial Virus (RSV, adjuvanted) 0.5 mL, PF 10/31/2024 Fluzone High Dose (IIV, triv alent, 0.5mL) 10/15/2024,05/30/2017,06/17/2016,2014 Fluzone High Dose - >Age 65 (Prefilled Syringe) 05/25/2021 Influenza (Generic) 06/05/2014,05/31/2013 Pneumococcal (Capvaxive - PCV 21) 10/31/2024 Pneumococcal (Generic) 05/31/2013 Pneumococcal (Prevnar 13) 06/17/2016 Tdap (Generic) 05/31/2023,05/30/2016 Family History Medical History Relation Comments Cancer Mother Diabetes Son Hypertension Son Relation Status Comments Mother Son Social History Tobacco Use Types Packs/Day Years Used Date Smoking Tobacco: Never Smokeless Tobacco: Never Tobacco Cessation:Counseling Given: No Sex and Gender Information Value Date Recorded Sex Assigned at Not on file Legal Sex Male 4:24 PM CDT Gender Identity Not on file Sexual Orientation Not on file Last Filed Vital Signs Vital Sign Reading Time Taken Comments Blood Pressure 150/80 04/23/2025 2:26 PM CDT Pulse 97 04/23/2025 2:02 PM CDT Temperature 36.2 C (97.2 F) 04/23/2025 2:02 PM CDT Respiratory Rate 18 04/23/2025 2:02 PM CDT Oxygen Saturation 98% 04/23/2025 2:02 PM CDT Inhaled Oxygen Concentration - - Weight 101.7 kg (224 lb 4.8 oz) 04/23/2025 2:02 PM CDT Height 182.9 cm (6') 04/23/2025 2:02 PM CDT Body Mass Index 30.42 04/23/2025 2:02 PM CDT Plan of Treatment Upcoming Encounters Date Type Department Care Team (Late st Contact Info) Description 10/21/2025 2:00 PM [facility] [employer] Office Visit [facility] Family Medicine - [address], [address] [place] [phone] Isis VII, Trev Gomez MD [address] [place] [address], [address] [address] Health Maintenance Due Date Last Done Comments Hepatitis C 1964 Zoster Vaccines (1 of 2) 1996 Annual Medicare Wellness Visit 2011 PHQ-2 (Physician [place]) 08/22/2024 COVID-19 Vaccine ( season) 2025 10/15/2024, 06/23/2023, 06/06/2022, Additional history exists DTaP, Tdap and Td Vaccines (3 - Td or Tdap) 05/31/2033 05/31/2023, 05/30/2016 Colorectal Cancer Screening Colonoscopy (10 Years) Discontinued 05/11/2024, 05/11/2024, 05/11/2024, Additional history exists Pneumococcal Vaccine: 50+ Years Completed 10/31/2024, 06/17/2016 RSV Immunization or 60+ Years Completed 10/31/2024 Meningococcal B Vaccine Aged Out No l onger eligible based on patient's age to complete this topic Meningococcal Vaccine Aged Out No jazlyn min eligible based on patient's age to complete this topic RSV Immunizations Under 20 Months Aged Out No longer eligible based on patient's age to complete this topic Procedures Procedure Name Priority Date/Time Associated Diagnosis Comments EGD GENERIC (SCAN ORDER) 02/20/2025 COLONOSCOPY GENERIC (SCAN ORDER) 05/11/2024 from Last 3 Months or Most Recently Relevant to Health Maintenance Results * EGD GENERIC (SCAN ORDER) (02/20/2025) 02/20/2025 [facility] Scanned SCANNING Final Resu lt * COLONOSCOPY GENERIC (SCAN ORDER) (05/11/2024) 05/11/2024 [facility] Scanned SCANNING Final Resu lt from Last 3 Months or Most Recently Relevant to Health Maintenance Insurance [employer] Care Teams [employer] Math Teacher Relationship Specialty Start Date End Date Trev Puga MD [address] [place] [id number] PCP - General FAMILY PRACTICE 02/18/25
--- OUTSIDE RECORDS SUMMARY | 2025-05-13 13:22 | XMS_ITS | Clinical Summary ---
Author Organization [facility] Address [address] [place] [address] Care Team Providers Care Transit Survey Worker Name Role Phone Jose Bowen MD Primary Care Provider [phone] Source Comments [facility],non-Critical access hospitalates and Associated Physician Practices is amultiple site organization consisting of ambulatory clinics and hospital sitesin [place], [place], [place] and [place]. This disclosure is being madepursuant to the Care Everywhere program and may not contain all information available regarding this patient. Last updated 18.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 Gender Identity Not on file Sexual Orientation Not on file Last Filed Vital Signs Vital Sign Reading Time Taken Comments Blood Pressure 128/71 12/02/2024 12:30 AM CDT Pulse 80 12/01/2024 8:02 PM CDT Temperature 36.7 C (98 F) 12/01/2024 8:02 PM CDT Respiratory Rate 18 12/01/2024 8:02 PM CDT Oxygen Saturation 96% 12/02/2024 12:30 AM CDT Inhaled Oxygen Concentration - - Weight 77.1 kg (170 lb) 12/01/2024 8:02 PM CDT Height 182.9 cm (6') 12/01/2024 8:02 PM CDT Body Mass Index 23.06 12/01/2024 8:02 PM CDT Plan of Treatment Health Maintenance Due Date Last Done Comments MEDICARE AWV 12 MONTHS 1945 HEPATITIS C SCREENING 07/18/1963 DTAP/TDAP/TD VACCINES (1 - Tdap) 1965 PNEUMOCOCCAL VACCINE 50+ (1 of 1 - PCV) 1996 ZOSTER VACCINE (1 of 2) 1996 Respiratory Syncytial Virus (RSV) Vaccine Pt: or over 60 yrs (1 - 1-dose 75+ series) 2021 DEPRESSION SCREENING 08/22/2024 COVID-19 VACCINE (1 - 2023-2 5 season) 2025 INFLUENZA VACCINE (#1) 2025 HEPATITIS B VACCINE Aged Out No longe r eligible based on patient's age to complete this topic HIB VACCINE Aged Out No longer eligi ble based on patient's age to complete this topic HPV VACCINE Aged Out No longer eligi ble based on patient's age to complete this topic MENINGOCOCCAL (Group B) VACC INE SHARED DECISION-MAKING Aged Out No longer eligibl e based on patient's age to complete this topic MENINGOCOCCAL GROUPS A/C/Y/W VACCINE Aged Out No longer eligible b ased on patient's age to complete this topic Insurance [employer] MEDICARE [employer] MED[employer]ARE SELF PAY NO INSURANCE Member Subscriber Plan / Payer (Ef fective for All Dates) Name:Perico Winston Jr. Member ID:Not on file Relation to Subscriber:Not on file Name:PERICO WINSTON JR. Subscriber ID:Not on file (Home) Address: [address] [place] [address] [place] [address] Payer ID:Not on file Group ID:Not on file Type:Self Pay Address: [place], [place] Care Teams Transit Survey Worker Relationship Specialty [place] [address] [place] [address] [address] [place], [place] [id number] PCP - General 09/23/21
== END 2025-05-13 12:54 | disposition home or self-care (01) ==
PROVIDERS: Visit Provider Internal Medicine Gastroenterology
DX: K74.60 Unspecified cirrhosis of liver (principal)
CPT/HCPCS: 76705